=== PATIENT | male | born 1965 ===

== ENCOUNTER 2020-06-03 09:09 | Outpatient (REF) | payer MEDICARE, MEDICAID, SELFPAY | END 2020-06-03 09:10 | disposition home or self-care (01) | LOC: HO.LAB 09:09 | PROVIDERS: Visit Provider Internal Medicine | DX: Z20.828 Contact with and (suspected) exposure to other viral communicable diseases (principal) | CPT/HCPCS: C9803; U0003 ==

== ENCOUNTER 2020-06-25 08:49 | Outpatient (REF) | payer MEDICARE, MEDICAID, SELFPAY | END 2020-06-25 08:50 | disposition home or self-care (01) | LOC: HO.LAB 08:49 | PROVIDERS: Visit Provider Internal Medicine | DX: Z20.828 Contact with and (suspected) exposure to other viral communicable diseases (principal) | CPT/HCPCS: C9803; U0003 ==

== ENCOUNTER 2020-11-04 08:00 | Outpatient (REF) | payer MEDICARE, MEDICAID, SELFPAY | END 2020-11-04 08:01 | disposition home or self-care (01) | LOC: HO.LAB 08:00 | PROVIDERS: Visit Provider Internal Medicine | DX: Z20.822 Contact with and (suspected) exposure to COVID-19 (principal) | CPT/HCPCS: C9803; U0003; U0005 ==

== ENCOUNTER 2021-11-03 10:07 | Outpatient (REF) | payer MEDICARE, MEDICAID, SELFPAY ==
[2021-11-03 10:50] LABS: COVID-19 Test Positive (Negative); IDNOW Serial# 16C4AD1C
== END 2021-11-03 10:08 | disposition home or self-care (01) ==
LOC: HO.LAB 10:07
PROVIDERS: Visit Provider Internal Medicine
DX: Z20.822 Contact with and (suspected) exposure to COVID-19 (principal)
CPT/HCPCS: 87635; C9803

== ENCOUNTER 2021-11-11 13:04 | Outpatient (REF) | payer MEDICARE, MEDICAID, SELFPAY ==
[2021-11-11 14:14] LABS: COVID-19 Test Negative (Negative)
== END 2021-11-11 13:05 | disposition home or self-care (01) ==
LOC: HO.LAB 13:04
PROVIDERS: Visit Provider Internal Medicine
DX: Z20.822 Contact with and (suspected) exposure to COVID-19 (principal)
CPT/HCPCS: 87635; C9803

== ENCOUNTER 2022-08-18 12:59 | Outpatient (REF) | payer OTHER, SELFPAY ==
--- NOTE | ~2022-08-18 | XR_ITS ---
EXAMINATION: XR CHEST XR RIBS, LEFT CLINICAL INFORMATION: Chest pain COMPARISON: 01/08/2017 TECHNIQUE: PA and lateral views of the chest. 3 views of the left ribs. FINDINGS: The lungs are well expanded. There is no focal consolidation, edema, or effusion. No pneumothorax. The cardiomediastinal silhouette is within normal limits. No acute osseous abnormality. Targeted left rib radiographs show no fracture. No cortical disruption. Appropriate alignment. XR/XR chest 2V IMPRESSION: Clear lungs. No focal left rib abnormality identified.
--- NOTE | ~2022-08-18 | XR_ITS ---
EXAMINATION: XR CHEST XR RIBS, LEFT CLINICAL INFORMATION: Chest pain COMPARISON: 01/08/2017 TECHNIQUE: PA and lateral views of the chest. 3 views of the left ribs. FINDINGS: The lungs are well expanded. There is no focal consolidation, edema, or effusion. No pneumothorax. The cardiomediastinal silhouette is within normal limits. No acute osseous abnormality. Targeted left rib radiographs show no fracture. No cortical disruption. Appropriate alignment. XR/XR ribs LT 2V IMPRESSION: Clear lungs. No focal left rib abnormality identified.
[2022-08-18 14:14] LABS: Basophils Percent Auto 0.3 % (0-2); Eosinophils Absolute Auto 0.2 X10*3/uL (0.0-0.4); Eosinophils Percent Auto 2.5 % (0-4); Imm Gran Abs Auto 0.03 X10*3/uL (0.00-0.03); Imm Gran Pct Auto 0.5 % (0.0-0.4); Lymphocytes Absolute Auto 1.1 X10*3/uL (1.2-4.9); Lymphocytes Percent Auto 17.3 % (20-40); MANUAL DIFF FLAG NO; Mean Corpuscular HGB Conc 33.3 g/dl (31.0-36.0); Mean Corpuscular Hemoglobin 31.2 pg (27.0-33.0); Mean Corpuscular Volume 93.6 fL (80.0-98.0); Mean Platelet Volume 10.1 fL (9.4-12.4); Monocytes Absolute Auto 0.5 X10*3/uL (0.1-1.2); Neutrophils Absolute Auto 4.5 x10*3/uL (2.0-8.3); Neutrophils Percent Auto 71.4 % (45-73); Platelet Count 262 X10*3/uL (160-400); Red Blood Count 4.81 X10*6/uL (4.60-5.80); Red Cell Distribution Width 12.3 % (11.0-16.0); White Blood Count 6.4 X10*3/uL (4.8-10.8)
[2022-08-18 15:28] LABS: Alanine Aminotransferase 16 U/L (0-40); Albumin Level 4.3 g/dL (3.5-5.0); Alkaline Phosphatase 58 U/L (39-117); Anion Gap 13 (12-20); Aspartate Amino Transferase 17 U/L (5-37); Bilirubin Total 0.5 mg/dL (0.0-1.0); Blood Urea Nitrogen 10 mg/dL (9-16); Calcium 9.4 mg/dL (8.4-10.2); Carbon Dioxide 28 mmol/L (22-29); Chloride 106 mmol/L (96-108); Cholesterol 163 mg/dL; Estimated Glomerular Filt Rate > 60; Glucose Fasting 90 mg/dL (60-99); HDL Cholesterol 52 mg/dL; LDL Cholesterol Calculated 96 mg/dl; Potassium 4.5 mmol/L (3.3-5.1); Sodium 142 mmol/L (135-145); Total Protein 6.8 g/dL (6.5-8.0); Triglycerides 78 mg/dL
[2022-08-18 15:33] LABS: Prostate Specific Antigen 1.03 ng/mL (<0.05-4.0); TSH reflex Free T4 0.95 uIU/mL (0.32-4.0)
[2022-08-19 08:31] LABS: HBsAGNum1 0.33 S/CO (0.00-0.99); HIV AB/AG Nonreactive (Nonreactive); HIV Num 1 0.06 S/CO (0.00-0.99); Hepatitis A Antibody IgM 0.24 Index (0-0.79); Hepatitis B Core Antibody Nonreactive (Nonreactive); Hepatitis B Surface Antigen Negative (Negative); ~HepC Num1 0.09 S/CO (0.00-0.79); ~Hepatitis A Antibody IgM Nonreactive (Nonreactive); ~Hepatitis B Surface Antibody NONREACTIVE (Nonreactive); ~Hepatitis C Antibody Nonreactive (Nonreactive)
== END 2022-08-18 13:00 | disposition home or self-care (01) ==
LOC: HO.HMGCX 12:59
PROVIDERS: PCP Internal Medicine; Visit Provider Internal Medicine
DX: Z00.01 Encounter for general adult medical examination with abnormal findings (principal); Z12.5 Encounter for screening for malignant neoplasm of prostate; R07.9 Chest pain, unspecified; K21.9 Gastro-esophageal reflux disease without esophagitis; R35.1 Nocturia; F33.9 Major depressive disorder, recurrent, unspecified; F41.1 Generalized anxiety disorder; G47.9 Sleep disorder, unspecified; F11.11 Opioid abuse, in remission
CPT/HCPCS: 36415; 71046; 71100; 80053; 80061; 84153; 84443; 85025; 86704; 86706; 86709; 86803; 87340; 87389

== ENCOUNTER 2022-08-25 08:16 | Outpatient (REF) | payer OTHER, SELFPAY ==
--- NOTE | ~2022-08-25 | US_ITS ---
EXAMINATION: US ABDOMEN COMPLETE CLINICAL INFORMATION: Epigastric pain. COMPARISON: Ultrasound abdomen 02/17/2012. TECHNIQUE: Real-time imaging of the abdominal viscera. FINDINGS: PANCREAS: Normal. ABDOMINAL AORTA: The proximal, mid, and distal segments are normal in caliber. INFERIOR VENA CAVA: Visualized portions are normal. LIVER: The liver is normal in size. The liver contour is normal. There is diffuse increased liver parenchymal echogenicity. No focal hepatic lesion. There is no intrahepatic biliary duct dilatation seen. GALLBLADDER: A 2 mm nonmobile polyp is seen. There is minimal echogenic bile. The gallbladder is physiologically distended without evidence of stones, wall thickening or pericholecystic fluid. COMMON BILE DUCT: Normal in caliber measuring 0.3 cm in diameter. RIGHT KIDNEY: Normal. No hydronephrosis. No renal calculi or focal parenchymal lesions. The kidney measures 10.0 cm in maximum dimension. LEFT KIDNEY: Normal. No hydronephrosis. No renal calculi or focal parenchymal lesions. The kidney measures 10.0 cm in maximum dimension. SPLEEN: Normal. The spleen measures 7.8 cm in maximum dimension. FREE FLUID: None. US/US abdomen complete IMPRESSION: 1. There is generalized increase in hepatic echotexture, consistent with fatty infiltration or hepatocellular disease. Please correlate clinically. No focal hepatic mass or intrahepatic biliary dilatation is seen. 2. A 2 mm nonmobile gallbladder polyp is incidentally noted.
== END 2022-08-25 08:17 | disposition home or self-care (01) ==
LOC: HO.HMGCX 08:16
PROVIDERS: PCP Internal Medicine; Visit Provider Internal Medicine
DX: R10.13 Epigastric pain (principal); R10.11 Right upper quadrant pain
CPT/HCPCS: 76700

== ENCOUNTER 2022-09-23 05:46 | Outpatient (REF) | payer OTHER, SELFPAY | END 2022-09-23 05:47 | disposition home or self-care (01) | LOC: HO.HOSX 05:46 | PROVIDERS: Visit Provider Physician Assistant | DX: Z01.818 Encounter for other preprocedural examination (principal); K21.9 Gastro-esophageal reflux disease without esophagitis; K76.0 Fatty (change of) liver, not elsewhere classified; K82.4 Cholesterolosis of gallbladder; R10.13 Epigastric pain; F41.1 Generalized anxiety disorder; A04.8 Other specified bacterial intestinal infections; Z79.899 Other long term (current) drug therapy | CPT/HCPCS: 99202 ==

== ENCOUNTER 2022-09-24 08:58 | Outpatient (REF) | payer OTHER, SELFPAY | END 2022-09-24 08:59 | disposition home or self-care (01) | LOC: HO.LNP 08:58 | PROVIDERS: Visit Provider Physician Assistant | DX: A04.8 Other specified bacterial intestinal infections (principal) | CPT/HCPCS: 87338 ==

== ENCOUNTER → 2022-10-22 07:26 | Outpatient (BNVA) | payer OTHER, SELFPAY | PROVIDERS: PCP Internal Medicine; Referring Provider Internal Medicine; Visit Provider Physician Assistant ==

== ENCOUNTER 2022-12-23 08:48 | Outpatient (REF) | payer OTHER, SELFPAY ==
--- NOTE | ~2022-12-23 | US_ITS ---
EXAMINATION: US COMPLETE ABDOMEN WITH LIVER ELASTOGRAPHY CLINICAL INFORMATION: Fatty liver COMPARISON: Previous abdominal ultrasound most recent July 2022 TECHNIQUE: Real-time imaging of the abdominal viscera. Noninvasive ultrasound liver fibrosis assessment is performed using James ElastPQ point quantification shear wave elastography (2D-SWE) with a C5-2 MHz transducer. Multiple elastography samples are obtained. FINDINGS: PANCREAS: The visualized pancreatic head and body are normal in appearance. The remainder of the pancreas is obscured from visualization by the overlying bowel gas. ABDOMINAL AORTA: The proximal, middle, and distal aortic segments are normal in caliber. INFERIOR VENA CAVA: Visualized portions are normal. LIVER: Liver echotexture is slightly increased. Liver is normal in size and contour. No focal lesion or intrahepatic biliary duct dilatation. The right lobe measures 12.6 cm in length. The left lobe measures 9 cm in length. Portal flow is normal/hepatopedal Shear wave liver elastography median stiffness is 1.4 m/s (reference: normal median stiffness is 1.3 m/s or less). IQR/median stiffness to assess sampling precision is 0.08 (reference: good quality data set is IQR/median stiffness of 0.15 or less). GALLBLADDER: Normal. The gallbladder is physiologically distended without evidence of stones, sludge, polyps, wall thickening or pericholecystic fluid. COMMON BILE DUCT: Normal in caliber measuring 0.3 cm in diameter. RIGHT KIDNEY: 1.5 cm cyst in the lower pole. No hydronephrosis. No renal calculi . The kidney measures 10.6 cm in maximum dimension. LEFT KIDNEY: Normal. No hydronephrosis. No renal calculi or focal parenchymal lesions. The kidney measures 10.4 cm in maximum dimension. SPLEEN: Normal. The spleen measures 7.6 cm in maximum dimension. FREE FLUID: None. US/US abdomen comp w elastography IMPRESSION: 1. Impression: Slightly echogenic liver probably representing fatty infiltration. Small right renal cyst. No imaging follow-up recommended. Limited visualization of the tail of the pancreas. 2. Liver elastography: Slightly limited due to sampling error. Normal liver stiffness. REFERENCE: Society of Radiologists in Ultrasound Liver Stiffness Thresholds (2020): LIVER STIFFNESS THRESHOLDS: *Liver Stiffness equal or less than 1.3 m/s: High probability of being normal. *Liver Stiffness less than 1.7 m/s: In the absence of other known clinical signs, rules out compensated advanced chronic liver disease. *Liver Stiffness 1.7-2.1 m/s: Suggestive of compensated advanced chronic liver disease but need further test for confirmation. *Liver Stiffness over 2.1 m/s: Rules in compensated advanced chronic liver disease. *Liver Stiffness over 2.4 m/s: Suggestive of clinically significant portal hypertension. QUALITY OF DATA SET: *IQR/Median value equal or less than 0.15 implies a quality data set. *IQR/Median value over 0.15 implies a poor quality data set. SIGNIFICANT CHANGE FROM PRIOR EXAM: Significant change if liver stiffness measurement is 10% or greater from prior exam. OTHER CONSIDERATIONS: The stage of liver fibrosis may be overestimated in the setting of acute hepatitis, liver inflammation, elevated liver function tests, hepatic vascular congestion, obstructive cholestasis, non-fasting state, and infiltrative diseases such as amyloidosis and lymphoma. In some patients with NAFLD, the liver stiffness thresholds for compensated advanced chronic liver disease may be lower. In causes other than viral hepatitis and NAFLD, liver stiffness thresholds are not well established.
== END 2022-12-23 08:49 | disposition home or self-care (01) ==
LOC: HO.US 08:48
PROVIDERS: Visit Provider Physician Assistant
DX: K76.0 Fatty (change of) liver, not elsewhere classified (principal); K82.4 Cholesterolosis of gallbladder
CPT/HCPCS: 76705; 76981

== ENCOUNTER 2023-07-12 09:53 | Outpatient (AMB) | payer OTHER, SELFPAY ==
--- NOTE | 2023-07-12 10:03 | A.OFFVIS_ITS ---
Intake Vital Signs 07/12/23 10:05 Height 5 ft 4 in Weight 151 lb BMI 25.9 BP 110/62 Blood Pressure Location Lt brachial Position Sitting Pulse 76 Intake Visit Reasons: Follow Up US - No show in November Intake Note: Patient follow up for abdominal pain, stool and US results. Patient cc: abdominal pain, acid reflex with burning sensation, denies any other GI issues. Livestock [employer] Super[employer] Required: No Accompanied by: Self / Same As Patient Allergies TUNA FISH Allergy (Unknown, Uncoded 03/19/22 12:08) UNKNOWN Medication List - Last Reconciled 07/12/23 by Kandace Willis PA-C albuterol sulfate 90 mcg/actuation (Ventolin HFA) 1 inh inhalation QID PRN 30 days citalopram 40 mg PO QAM famotidine 20 mg PO DAILY hydroxyzine HCl 50 mg PO BID PRN zolpidem 10 mg PO BEDTIME PRN HPI HPI Comments History of Present Illness Details A 57 y/o male seen last 10/15- f/u after U/S from 11/2022 H has mild reflux- occ. he does go to bed with a full stomach- he eats a full meal before bed He has normal bowel pattern. He no other GI or general complaints No nausea, vomiting, hematemesis, hematochezia fever or chills PFSH Surgical History Hx of colonoscopy Social History Housing: House Patient Tobacco Use Status: Never used Tobacco e-Cigarette/Vaping Use: Never Used Current occupational status: retired Cognitive needs: No Hearing needs: No Vision needs: No Review of Systems Const All systems reviewed & are unremarkable except as noted in HPI and below Card Denies chest pain and Denies dyspnea Resp Denies dyspnea GI Reports abdominal pain, Reports change in bowel habits, Reports heartburn, Denies diarrhea, Denies nausea and Denies vomiting Physical Exam Vital Signs: Last Vital Signs Pulse 76 07/12/23 10:05 BP 110/62 07/12/23 10:05 BMI result Body Mass Index 25.9 Const General: cooperative, healthy appearing, comfortable and no acute distress Orientation/consciousness: patient oriented x3 Limitations: no limitations Eyes Sclerae: sclerae normal Resp Effort & Inspection: normal respiratory effort and able to speak in complete sentences Skin General skin exam: no rashes or lesions noted Neuro General: patient oriented x3 Extrem General: Yes full ROM Psych Appearance: grossly normal and well kempt Mental Status: mental status grossly normal Speech and movement: Normal speech and movement present and Clear speech present Affect: normal affect Attitude: cooperative Thought process: Normal thought process present Thought content: Normal thought content present Insight: Good insight present (Psych) Judgement: Good judgement present (Psych) Results Reviewed Results Reviewed: US/US abdomen comp w elastography IMPRESSION: 1. Impression: Slightly echogenic liver probably representing fatty infiltration. Small right renal cyst. No imaging follow-up recommended. Limited visualization of the tail of the pancreas. 2. Liver elastography: Slightly limited due to sampling error. Normal liver stiffness HP neg- Assessment & Plan Assessment & Plan (1) NAFLD (nonalcoholic fatty liver disease): Comment: Reviewed ultrasound, reviewed blood work lifestyle dietary change, he does not drink Code(s): K76.0 - Fatty (change of) liver, not elsewhere classified Plan: L/S change He has updating labs next month with his PCP (2) GERD without esophagitis: Comment: reflux- trial pantoprazole neg H pylori test Code(s): K21.9 - Gastro-esophageal reflux disease without esophagitis Plan: pantoprazole 20 mg Reviewed precautions Plan Follow-up PCP as schedule Labs as schedule PPI Medications: New pantoprazole 40 mg (2 x 20 mg) PO ONCE 60 tabs 6RF 30 days Patient Instructions: He will have labs per PCP as scheduled He will give trial to pantoprazole 20 mg Reviewed precautions-avoid culprits lifestyle and dietary change to include not eating late in the evening. Maintain good weight, glucose and cholesterol control Coding Level of Care Code Est Pt Level 3 (47560) Diagnoses NAFLD (nonalcoholic fatty liver disease) K76.0 GERD without esophagitis K21.9 Time Spent (min) 30
[2023-07-12 10:05] VITALS: BP 110/62; PULSE 76; BMI 25.9
== END 2023-07-12 11:37 | disposition home or self-care (01) ==
PROVIDERS: PCP Internal Medicine; Visit Provider Physician Assistant
DX: K76.0 Fatty (change of) liver, not elsewhere classified (principal); K21.9 Gastro-esophageal reflux disease without esophagitis
CPT/HCPCS: 99213

== ENCOUNTER → 2023-07-12 09:53 | Outpatient (BNVA) | payer OTHER, SELFPAY | PROVIDERS: PCP Internal Medicine; Visit Provider Physician Assistant | DX: K76.0 Fatty (change of) liver, not elsewhere classified (principal); K21.9 Gastro-esophageal reflux disease without esophagitis | CPT/HCPCS: 99212 ==

== ENCOUNTER 2023-09-14 11:44 | Outpatient (AMB) | payer OTHER, SELFPAY ==
[2023-09-14 11:47] VITALS: BP 128/72; PULSE 86; O2SAT 97; BMI 28.0
--- NOTE | 2023-09-14 11:47 | A.OFFPC_ITS ---
Vital Signs 3 09/14/23 11:47 Height 5 ft 4 in Weight 163 lb 2 oz BMI 28.0 BP 128/72 Blood Pressure Location Lt brachial Position Sitting Pulse 86 Pulse Source Pulse Oximeter Pulse Oximetry (%) 97 Oxygen Delivery Method Room Air Intake Visit Reasons: PE Allergies TUNA FISH Allergy (Unknown, Uncoded 03/19/22 12:08) UNKNOWN Medication List - Last Reconciled 09/14/23 by Isidoro Palmer MD albuterol sulfate 90 mcg/actuation (Ventolin HFA) 1 inh inhalation QID PRN 30 days citalopram 40 mg PO QAM famotidine 20 mg PO DAILY hydroxyzine HCl 50 mg PO BID PRN zolpidem 10 mg PO BEDTIME PRN Tobacco use date assessed: 09/14/23 Dental Screening Dental Screen Date: 09/14/23 Did you have a dental visit in the last 12 months?: Yes Did you have a dental problem in the last 6 months where you did not have access to dental care?: No Was dental information given to patient?: Patient has dentist HPI PE 2 HPI0 Details Patient is a 57-year-old gentleman came in for physical exam Patient is already established with gastroenterology, colonoscopy through [facility] Patient have intermittent asthma, he is requesting refill on albuterol which I have sent Patient also sees psychiatrist for management of major depression, difficulty sleeping and anxiety On examination today I sensed irregularity in his heart We got the EKG which showed premature ventricular complexes February of 2022, his EKG was within normal limit Have placed referral to Cardiology Holter monitor and echocardiogram ordered Patient is overweight need to lose weight PFSH Surgical History Hx of colonoscopy Social History Housing: House Patient Tobacco Use Status: Never used Tobacco e-Cigarette/Vaping Use: Never Used Current occupational status: retired Cognitive needs: No Hearing needs: No Vision needs: No Questionnaire AUDIT C Alcohol Use Questionnaire (AUDIT-C) 1. How often do you have a drink containing alcohol?: Never 3. How often do you have six or more drinks on one occasion?: Never Total Score: 0 Score Reviewed/Action Taken: Yes Review of Systems Const Denies chills, Denies fever(s) and Denies headache(s) Eyes Denies blurry vision ENT Denies headache(s), Denies nasal discharge, Denies nasal obstruction, Denies odynophagia and Denies sinus pain Card Denies chest pain at rest and Denies chest pain with activity Resp Denies cough and Denies hemoptysis GI Denies diarrhea, Denies odynophagia, Denies vomiting and Denies hematemesis Reports as per HPI Musc Denies abnormal gait Skin/Breast Reports as per HPI Neuro Denies Neuro-related abnormal movements, Denies Abnormal speech present, Denies abnormal gait, Denies headache(s) and Denies Sensory deficit (Neuro) Psych Denies mood swings and Denies paranoia Endo Reports as per HPI Chi/Lymph Reports as per HPI Aller/Immun Reports as per HPI Physical exam (Primary Care) Vital Signs: Last Vital Signs Pulse 86 09/14/23 11:47 BP 128/72 09/14/23 11:47 Pulse Ox 97 09/14/23 11:47 Oxygen Delivery Method Room Air 09/14/23 11:47 BMI result Body Mass Index 28.0 Tobacco/Smoking Status: Tobacco use Status Tobacco use date assessed 09/14/23 09/14/23 11:52 Patient Tobacco Use Status Never used Tobacco 09/14/23 11:52 e-Cigarette/Vaping Use Never Used 09/14/23 11:52 Const General: cooperative, comfortable and no acute distress Orientation/consciousness: patient oriented x3 HENMT Head: Yes normocephalic and Yes atraumatic Eyes General: appearance normal, both eyes and all related structures Pupils: Equal, round and reactive pupils present EOM: EOMs intact bilaterally Neck Neck: Yes supple and No lymphadenopathy Thyroid: Thyroid normal Lymphatic: no lymphadenopathy noted Resp Effort & Inspection: normal respiratory effort and able to speak in complete sentences Auscultation: clear to auscultation bilaterally Cardio Other: Heart sounds: S1 normal heart sound present and S2 normal heart sound present GI Palpation (GI): Soft to palpation and nontender Auscultation: normal bowel sounds General: Yes no CVA tenderness Back/Spine/Pelvis Back: no CVA tenderness Skin General skin exam: elasticity normal and turgor normal Neuro General: patient oriented x3 and gait normal Cranial nerves: Yes Equal, round and reactive pupils present Speech: No Abnormal speech present Sensory Exam: No Sensory deficit (Neuro) Coordination: tandem gait normal and Romberg test negative Extrem General: Yes normal exam except as noted and No edema Office Procedures EKG [id number], Complete Assessment and Plan Assessment & Plan (1) Encounter for general adult medical examination with abnormal findings: Code(s): Z00.01 - Encounter for general adult medical examination with abnormal findings (2) Irregular heart rhythm: Code(s): I49.9 - Cardiac arrhythmia, unspecified (3) GERD without esophagitis: Comment: reflux- trial pantoprazole neg H pylori test Code(s): K21.9 - Gastro-esophageal reflux disease without esophagitis (4) Major depression, recurrent: Code(s): F33.9 - Major depressive disorder, recurrent, unspecified Qualifiers: Active/Remission status: in partial remission Qualified Code(s): F33.41 - Major depressive disorder, recurrent, in partial remission (5) Anxiety, generalized: Comment: , very polite Gent Code(s): F41.1 - Generalized anxiety disorder (6) Difficulty sleeping: Code(s): G47.9 - Sleep disorder, unspecified (7) Asthma, intermittent: Code(s): J45.20 - Mild intermittent asthma, uncomplicated Qualifiers: Asthma complication type: uncomplicated Asthma severity: mild Qualified Code(s): J45.20 - Mild intermittent asthma, uncomplicated (8) Environmental allergies: Code(s): Z91.09 - Other allergy status, other than to drugs and biological substances (9) Premature ventricular complex: Code(s): I49.3 - Ventricular premature depolarization Plan Patient is a 57-year-old gentleman came in for physical exam Patient is already established with gastroenterology, colonoscopy through [facility] Patient have intermittent asthma, he is requesting refill on albuterol which I have sent Patient also sees psychiatrist for management of major depression, difficulty sleeping and anxiety On examination today I sensed irregularity in his heart We got the EKG which showed premature ventricular complexes February of 2022, his EKG was within normal limit Have placed referral to Cardiology Holter monitor and echocardiogram ordered Patient do not have any shortness a breath or chest pain there is no swelling of ankles or orthopnea Patient is overweight need to lose weight Orders: Orders 2 Comprehensive Met. Panel Today F33.9 - Major depressive disorder, recurrent, unspecified, F41.1 - Generalized anxiety disorder, G47.9 - Sleep disorder, unspecified, I49.9 - Cardiac arrhythmia, unspecified, J45.20 - Mild intermittent asthma, uncomplicated, Z00.01 - Encounter for general adult medical examination with abnormal findings, Z91.09 - Other allergy status, other than to drugs and biological substances LDL Cholesterol Direct Today F33.9 - Major depressive disorder, recurrent, unspecified, F41.1 - Generalized anxiety disorder, G47.9 - Sleep disorder, unspecified, I49.9 - Cardiac arrhythmia, unspecified, J45.20 - Mild intermittent asthma, uncomplicated, Z00.01 - Encounter for general adult medical examination with abnormal findings, Z91.09 - Other allergy status, other than to drugs and biological substances TSH reflex Free T4 Today F33.9 - Major depressive disorder, recurrent, unspecified, F41.1 - Generalized anxiety disorder, G47.9 - Sleep disorder, unspecified, I49.9 - Cardiac arrhythmia, unspecified, J45.20 - Mild intermittent asthma, uncomplicated, Z00.01 - Encounter for general adult medical examination with abnormal findings, Z91.09 - Other allergy status, other than to drugs and biological substances ECG holter monitor 24 hour Today I49.9 - Cardiac arrhythmia, unspecified CA echo transthoracic complete Today I49.9 - Cardiac arrhythmia, unspecified AMB EKG-In Office Today I49.9 - Cardiac arrhythmia, unspecified Complete Blood Count Auto Diff Today F33.9 - Major depressive disorder, recurrent, unspecified, F41.1 - Generalized anxiety disorder, G47.9 - Sleep disorder, unspecified, I49.9 - Cardiac arrhythmia, unspecified, J45.20 - Mild intermittent asthma, uncomplicated, Z00.01 - Encounter for general adult medical examination with abnormal findings, Z91.09 - Other allergy status, other than to drugs and biological substances Referrals 2 Cardiology Referral I49.3 - Ventricular premature depolarization, I49.9 - Cardiac arrhythmia, unspecified Medications: Refilled 2 albuterol sulfate 90 mcg/actuation (Ventolin HFA) 1 inh inhalation QID PRN 6.7 grams 2RF shortness of breath or wheezing 30 days Coding Level of Care Code Est Pt Prev Care 40-64y(94110) Diagnoses Encounter for general adult medical examination with abnormal findings Z00.01 Irregular heart rhythm I49.9 GERD without esophagitis K21.9 Recurrent major depressive disorder, in partial remission F33.41 Active/Remission status: in partial remission Anxiety, generalized F41.1 Difficulty sleeping G47.9 Mild intermittent asthma without complication J45.20 Asthma complication type: uncomplicated Asthma severity: mild Environmental allergies Z91.09 Premature ventricular complex I49.3 CPT Codes EKG - CPT: 53562-[id number], Complete ([id number])
== END 2023-09-14 12:25 | disposition home or self-care (01) ==
PROVIDERS: Visit Provider Internal Medicine
DX: Z00.01 Encounter for general adult medical examination with abnormal findings (principal); I49.9 Cardiac arrhythmia, unspecified; F33.41 Major depressive disorder, recurrent, in partial remission; K21.9 Gastro-esophageal reflux disease without esophagitis; I49.3 Ventricular premature depolarization; F41.1 Generalized anxiety disorder; G47.9 Sleep disorder, unspecified; J45.20 Mild intermittent asthma, uncomplicated; Z91.09 Other allergy status, other than to drugs and biological substances
CPT/HCPCS: 93000; 99214; 99396

== ENCOUNTER 2023-09-22 08:04 | Emergency (ER) | payer OTHER, SELFPAY ==
--- NOTE | ~2023-09-22 | XR_ITS ---
EXAMINATION: XR CHEST CLINICAL INFORMATION: Chest pain COMPARISON: None available. TECHNIQUE: Frontal view of the chest was obtained. FINDINGS: No significant abnormality is noted involving the heart, lungs, mediastinum, bony thorax or soft tissues. XR/XR chest 1V IMPRESSION: Unremarkable chest examination.
--- NOTE | 2023-09-22 08:05 | ECG_ITS ---
Test Reason : cp Blood Pressure : / mmHG Vent. Rate : 069 BPM Atrial Rate : 069 BPM P-R Int : 144 ms QRS Dur : 090 ms QT Int : 390 ms P-R-T Axes : 060 027 032 degrees QTc Int : 417 ms Normal sinus rhythm with sinus arrhythmia Normal ECG When compared with ECG of 08-JAN-2017 22:26, Vent. rate has decreased BY 36 BPM Referred By: Generic ED Physician Electronically Signed By:CLEO MENDOZA
[2023-09-22 08:30] VITALS: BP 148/74; PULSE 65; RESP 18; TEMP 37.1; O2SAT 98; BMI 26.4
--- NOTE | 2023-09-22 08:34 | ED_ITS ---
HPI - Chest Pain General Chief Complaint: General Medical Stated Complaint: Chest Pain L Arm Numbness Time Seen by Provider: 09/22/23 08:14 Source: patient Mode of arrival: ambulatory Limitations: no limitations History of Present Illness HPI narrative: 57 yo male with PMH of GERD, anxiety was told at his PCP he had irregular heart beat and has to see a associate store director - he doesn't know what that means and is very nervous about it. He is active and walks and has no chest pain or symptoms. Last night he was in bed and had a knot and pain in L chest into L arm. He just lifted a large ladder with his neighbor. It hurts to move the arm and touch the left chest. He has no dyspnea, nausea or sweats. He has no fam hx of CAD. He only had PVCs on the EKG but was not aware of that. He has no recent travel or hx of VTE. MD complaint: chest pain Onset (ago): day(s) (last night) Timing of current episode: constant Prior episodes: No Onset: during rest Pain radiation: left arm Severity: moderate Quality: aching Relieving factors: nothing Exacerbating factors: palpation and movement Context: trauma/injury Treatment prior to arrival: none Related Data Home Medications Medication Instructions Recorded Confirmed citalopram 40 mg tablet 40 mg PO QAM 03/19/22 09/14/23 hydroxyzine HCl 50 mg tablet 50 mg PO BID PRN anxiety 03/19/22 09/14/23 zolpidem 10 mg tablet 10 mg PO BEDTIME PRN 03/19/22 09/14/23 Previous Rx's Medication Instructions Recorded famotidine 20 mg tablet 20 mg PO DAILY #90 tabs 04/26/23 albuterol sulfate 90 mcg/actuation 1 inh inhalation QID PRN shortness 09/14/23 aerosol inhaler (Ventolin HFA) of breath or wheezing 30 days #6.7 grams cyclobenzaprine 10 mg tablet 10 mg PO TID PRN muscle spasm #20 09/22/23 tabs Allergies Allergy/AdvReac Type Severity Reaction Status Date / Time TUNA FISH Allergy Unknown UNKNOWN Uncoded 09/22/23 08:34 Review of Systems 2 Review of Systems: Constitutional : No Weight loss, No Fever, No Chills ENT/Mouth : No sore throat, No Rhinorrhea Eyes: No Eye Pain, No Swelling Cardiovascular : pos Chest Pain, no SOB, no Dyspnea on Exertion, No Orthopnea, No Edema, No Palpitations Respiratory : No Cough, No Sputum Gastrointestinal : no Nausea, No Vomiting, No Diarrhea, No abdominal Pain, No Hematochezia, No Melena Genitourinary : No Dysuria, No Urinary Frequency Musculoskeletal : No joint pain, No Myalgias, No Joint Swelling Skin : No Skin Lesions, No rash Neuro : No Weakness, No Numbness, No Dizziness, No Headache Psych : No Anxiety/Panic, No Depression All other systems reviewed and are negative [facility] Past Medical History Attestation statement: The following information was validated with the patient. Source: old records reviewed Medical History Premature ventricular complex Anxiety, generalized Major depression, recurrent GERD without esophagitis Surgical History Hx of colonoscopy Social History Social History Housing: House Patient Tobacco Use Status: Never used Tobacco Smoked in Last 30 Days: No e-Cigarette/Vaping Use: Never Used Use of substances other than those prescribed or required for medical reasons: No Advance Directives: No Advance Directives Information Provided: Yes Current occupational status: retired Cognitive needs: No Hearing needs: No Vision needs: No Physical Exam 2 Vital Signs: Vital Signs: Last Vital Signs Temp 98 F 09/22/23 09:08 Pulse 63 09/22/23 09:08 Resp 16 09/22/23 09:08 BP 144/75 H 09/22/23 09:08 Pulse Ox 97 09/22/23 09:08 O2 Del Method Room Air 09/22/23 09:08 BMI result Body Mass Index 26.4 Appearance: Alert. Oriented X3. No acute distress. Eyes: Pupils equal, round and reactive to light. ENT: Pharynx normal. TMs normal Neck: Normal inspection. Neck supple. Mild L trapezius ttp CVS: Normal heart rate and rhythm. Pulses normal. Chest: ttp along L chest wall reproduces pain, ttp along L shoulder reproduces pain - distal L arm NV intact Respiratory: No respiratory distress. Breath sounds normal. Abdomen: Soft and nontender. Skin: Skin warm and dry. Normal skin color. Normal skin turgor. Extremities: No lower extremity edema. No calf ttp Neuro: Oriented X 3. No motor deficit. No sensory deficit. Medical Decision Making Medical Decision Making [facility] Narrative: 57 yo male with PMH of GERD, anxiety here with c/o L chest pain that is reproduceable likely after lifting a ladder. He has no ACS risk factors did have stress after being told he had irregular heart beat but it was PVCs on EKG. He has no exertional symptoms when he is walking. He has no associated symptoms now. He has no risk factors for VTE no tachycardia or hypoxia/signs of DVT. He has distal pulses intact doubt dissection. He walks without chest pain. This does not sound like ACS. I suspect more MSK pain as I can reproduce it Differential Diagnosis Differential Diagnoses: The differential diagnosis associated with the presentation includes stress, anxiety, MSK pain, strain Admission/Observation Consideration of admission/observation: Escalation of care including admission/observation considered atypical pain at this time stable for DC trop flat EKG negative CXR normal non exertional symptoms Lab Data [facility] Lab Attestation statement: I reviewed the patient's lab results. 09/22/23 08:46 09/22/23 08:46 Labs: Lab Results 09/22/23 Range/Units 08:46 WBC 5.2 (4.8-10.8) X10*3/uL RBC 4.45 L (4.60-5.80) X10*6/uL Hgb 14.1 (14.0-18.0) g/dl Hct 41.9 L (42.0-52.0) % MCV 94.2 (80.0-98.0) fL MCH 31.7 (27.0-33.0) pg MCHC 33.7 (31.0-36.0) g/dl RDW 12.7 (11.0-16.0) % Plt Count 224 (160-400) X10*3/uL MPV 9.8 (9.4-12.4) fL Immature Gran % (Auto) 0.2 (0.0-0.4) % Neut % (Auto) 62.9 (45-73) % Lymph % (Auto) 21.0 (20-40) % Gila % (Auto) 9.7 (2-11) % Eos % (Auto) 5.6 H (0-4) % Baso % (Auto) 0.6 (0-2) % Lymph # (Auto) 1.1 L (1.2-4.9) X10*3/uL Gila # (Auto) 0.5 (0.1-1.2) X10*3/uL Eos # (Auto) 0.3 (0.0-0.4) X10*3/uL Baso # (Auto) 0.0 (0.0-0.2) X10*3/uL Abs Immat Gran (auto) 0.01 (0.00-0.03) X10*3/uL Absolute Neuts (auto) 3.2 (2.0-8.3) x10*3/uL Absolute Nucleated RBC 0.000 (0.0-0.012) X10*3/uL Nucleated RBC % (auto) 0.0 (0.0-0.2) /100WBC Sodium 141 (135-145) mmol/L Potassium 4.6 (3.3-5.1) mmol/L Chloride 109 H (96-108) mmol/L Carbon Dioxide 29 (22-29) mmol/L Anion Gap 8 L (12-20) BUN 10 (9-16) mg/dL Creatinine 0.86 (0.5-1.4) mg/dL Estim Creat Clear Calc 77.4 Estimated GFR > 60 Random Glucose 93 (60-115) mg/dL Calcium 9.3 (8.4-10.2) mg/dL Magnesium 2.2 (1.6-2.6) mg/dL Total Bilirubin 0.5 (0.0-1.0) mg/dL Direct Bilirubin 0.2 (0.0-0.5) mg/dL AST 17 (5-37) U/L ALT 16 (0-40) U/L Alkaline Phosphatase 58 (39-117) U/L Troponin I High Sens < 2.7 (<3.5-35.0) ng/L Total Protein 6.6 (6.5-8.0) g/dL Albumin 4.0 (3.5-5.0) g/dL Lipase 35 (8-78) U/L Independent Interpretation I performed an independent interpretation of an: EKG and Plain X-Ray (normal ) Interpretation: Rate: 69 Rhythm: [facility]: normal Normal P waves. Normal YARIEL. Normal QRS complex. ST T wave : normal no AZALEA qTC: 417 prior studies: no acute ischemia The study has been interpreted contemporaneously by me. . Radiology Impression Discussion of test interpretation with radiology: I have reviewed the radiologist's reading. External Record Review External record reviewed: Inpatient record and Office record Prescription Management I considered prescription management with: Other Discharge Plan Discharge Clinical Impression: Chest pain Qualifiers: Chest pain type: precordial pain Qualified Code(s): R07.2 - Precordial pain Patient Disposition: Home, Self-Care Instructions: Chest Pain (ED), Chest Wall Pain (ED) Additional Instructions: return for worsening symptoms or concerns. please take it easy with your pectoralis muscle I suspect there is an injury and strain. no heavy lifting for 2 weeks. use motrin or tylenol along with muscle relaxers. continue to follow up with your primary care doctor your EKG at your primary care doctor showed PVC premature ventricular contraction Prescriptions: New cyclobenzaprine 10 mg tablet 10 mg PO TID PRN (Reason: muscle spasm) Qty: 20 0RF No Action famotidine 20 mg tablet 20 mg PO DAILY Qty: 90 2RF zolpidem 10 mg tablet 10 mg PO BEDTIME PRN hydroxyzine HCl 50 mg tablet 50 mg PO BID PRN (Reason: anxiety) citalopram 40 mg tablet 40 mg PO QAM albuterol sulfate [Ventolin HFA] 90 mcg/actuation HFA aerosol inhaler 1 inh inhalation QID PRN (Reason: shortness of breath or wheezing) 30 Days Qty: 6.7 2RF
[2023-09-22 08:57] LABS: MANUAL DIFF FLAG NO
[2023-09-22 08:59] LABS: Basophils Percent Auto 0.6 % (0-2); Eosinophils Absolute Auto 0.3 X10*3/uL (0.0-0.4); Eosinophils Percent Auto 5.6 % (0-4); Hematocrit 41.9 % (42.0-52.0); Hemoglobin 14.1 g/dl (14.0-18.0); Imm Gran Abs Auto 0.01 X10*3/uL (0.00-0.03); Imm Gran Pct Auto 0.2 % (0.0-0.4); Lymphocytes Absolute Auto 1.1 X10*3/uL (1.2-4.9); Mean Corpuscular HGB Conc 33.7 g/dl (31.0-36.0); Mean Corpuscular Hemoglobin 31.7 pg (27.0-33.0); Mean Corpuscular Volume 94.2 fL (80.0-98.0); Mean Platelet Volume 9.8 fL (9.4-12.4); Monocytes Absolute Auto 0.5 X10*3/uL (0.1-1.2); Monocytes Percent Auto 9.7 % (2-11); Neutrophils Absolute Auto 3.2 x10*3/uL (2.0-8.3); Neutrophils Percent Auto 62.9 % (45-73); Platelet Count 224 X10*3/uL (160-400); Red Blood Count 4.45 X10*6/uL (4.60-5.80); Red Cell Distribution Width 12.7 % (11.0-16.0); White Blood Count 5.2 X10*3/uL (4.8-10.8)
[2023-09-22 09:08] VITALS: BP 144/75; PULSE 63; RESP 16; TEMP 36.6; O2SAT 97
--- NOTE | 2023-09-22 09:10 | PC.NURSE ---
no distress, reports improved chest pain, no sob.
[2023-09-22 09:12] LABS: Alanine Aminotransferase 16 U/L (0-40); Alkaline Phosphatase 58 U/L (39-117); Anion Gap 8 (12-20); Aspartate Amino Transferase 17 U/L (5-37); Bilirubin Direct 0.2 mg/dL (0.0-0.5); Bilirubin Total 0.5 mg/dL (0.0-1.0); Blood Urea Nitrogen 10 mg/dL (9-16); Calcium 9.3 mg/dL (8.4-10.2); Carbon Dioxide 29 mmol/L (22-29); Chloride 109 mmol/L (96-108); Creatinine Clr Calc Pharmacy 77.4; Estimated Glomerular Filt Rate > 60; Glucose Random 93 mg/dL (60-115); Lipase 35 U/L (8-78); Magnesium 2.2 mg/dL (1.6-2.6); Potassium 4.6 mmol/L (3.3-5.1); Sodium 141 mmol/L (135-145); Total Protein 6.6 g/dL (6.5-8.0)
[2023-09-22 09:24] LABS: Troponin-I High Sensitivity < 2.7 ng/L (<3.5-35.0)
== END 2023-09-22 09:55 | disposition home or self-care (01) ==
PROVIDERS: Emergency Provider Emergency Medicine; PCP Internal Medicine
DX: R07.2 Precordial pain (principal); K21.9 Gastro-esophageal reflux disease without esophagitis
CPT/HCPCS: 36415; 71045; 80048; 80076; 83690; 83735; 84484; 85025; 93005; 99283; 99284

== ENCOUNTER → 2023-09-22 08:05 | Outpatient (BNV) | payer OTHER, SELFPAY | PROVIDERS: Emergency Provider Emergency Medicine; PCP Internal Medicine; Visit Provider Internal Medicine | DX: I49.9 Cardiac arrhythmia, unspecified (principal) | CPT/HCPCS: 93010 ==

== ENCOUNTER 2023-10-01 07:40 | Outpatient (REF) | payer OTHER, SELFPAY ==
[2023-10-01 11:22] LABS: MANUAL DIFF FLAG NO
[2023-10-01 11:29] LABS: Basophils Percent Auto 0.7 % (0-2); Eosinophils Absolute Auto 0.4 X10*3/uL (0.0-0.4); Eosinophils Percent Auto 6.6 % (0-4); Hematocrit 45.2 % (42.0-52.0); Imm Gran Abs Auto 0.01 X10*3/uL (0.00-0.03); Imm Gran Pct Auto 0.2 % (0.0-0.4); Lymphocytes Absolute Auto 1.1 X10*3/uL (1.2-4.9); Mean Corpuscular HGB Conc 33.2 g/dl (31.0-36.0); Mean Corpuscular Hemoglobin 31.2 pg (27.0-33.0); Mean Platelet Volume 10.4 fL (9.4-12.4); Monocytes Absolute Auto 0.4 X10*3/uL (0.1-1.2); Monocytes Percent Auto 8.1 % (2-11); Neutrophils Absolute Auto 3.5 x10*3/uL (2.0-8.3); Neutrophils Percent Auto 63.4 % (45-73); Platelet Count 246 X10*3/uL (160-400); Red Blood Count 4.81 X10*6/uL (4.60-5.80); Red Cell Distribution Width 12.4 % (11.0-16.0); White Blood Count 5.4 X10*3/uL (4.8-10.8)
[2023-10-01 11:52] LABS: Alanine Aminotransferase 17 U/L (0-40); Albumin Level 4.4 g/dL (3.5-5.0); Alkaline Phosphatase 64 U/L (39-117); Anion Gap 9 (12-20); Aspartate Amino Transferase 18 U/L (5-37); Bilirubin Total 0.5 mg/dL (0.0-1.0); Blood Urea Nitrogen 14 mg/dL (9-16); Calcium 9.4 mg/dL (8.4-10.2); Carbon Dioxide 29 mmol/L (22-29); Chloride 108 mmol/L (96-108); Estimated Glomerular Filt Rate > 60; Glucose Random 94 mg/dL (60-115); Potassium 4.7 mmol/L (3.3-5.1); Sodium 141 mmol/L (135-145); Total Protein 7.3 g/dL (6.5-8.0)
[2023-10-01 12:11] LABS: TSH reflex Free T4 0.92 uIU/mL (0.32-4.0)
[2023-10-02 11:08] LABS: LDL Cholesterol Direct 103 mg/dL (<100)
== END 2023-10-01 07:41 | disposition home or self-care (01) ==
LOC: HO.HMGCLDS 07:40
PROVIDERS: PCP Internal Medicine; Visit Provider Internal Medicine
DX: Z00.01 Encounter for general adult medical examination with abnormal findings (principal); F33.9 Major depressive disorder, recurrent, unspecified; F41.1 Generalized anxiety disorder; G47.9 Sleep disorder, unspecified; J45.20 Mild intermittent asthma, uncomplicated; Z91.09 Other allergy status, other than to drugs and biological substances; I49.9 Cardiac arrhythmia, unspecified
CPT/HCPCS: 36415; 80053; 83721; 84443; 85025

== ENCOUNTER → 2023-10-08 09:28 | Outpatient (REF) | payer OTHER, SELFPAY ==
--- NOTE | 2023-10-08 09:31 | HM_ITS ---
Conclusion: 1. Patient was monitored for total period of 1 day 2. Baseline was normal sinus rhythm with average heart rate of 78 beats per minute 3. Frequent PVCs noted, all of them isolated with total burden of about 15% 4. No significant pauses noted 5. No patient reported symptoms MTDD
--- NOTE | 2023-10-08 09:31 | CA_ITS ---
Transthoracic Echocardiogram Patient (Last, First, Middle): Vincent Askew Adrian Gender: Male Date of : 1965 Age: 57 Procedure Date: 10/08/2023 Procedure Type: Transthoracic Echocardiogram Location: OP Height: 162.56 cm Weight: 69.85 kg BSA: 1.75 m2 Heart Rate: bpm BP: 130 / 66 mmHg [employer] Paraprofessional: TO Referring MD: Isidoro Palmer MD Stacker Straightener: Fredi Carballo MD Symptoms: I49.9 - Cardiac arrhythmia, unspecified Study Quality: Fair/Contrast ECG Rhythm: Sinus Conclusions: - Normal study Findings Procedure Information Contrast agent, definity, is being given per protocol without apparent complications. Left Ventricle Normal left ventricular size, thickness, and systolic function. The visually estimated ejection fraction is between 55-60%. Spectral Doppler is indicative of a normal filling pattern. Right Ventricle Normal right ventricular cavity size and systolic function. Atria Both atria are normal in size. There is no evidence of interatrial shunt. Aortic Valve Normal aortic valve structure and function. There is no aortic valve stenosis. There is no aortic valve regurgitation. Mitral Valve Normal mitral valve structure and function. There is trace mitral valve regurgitation. There is no mitral valve stenosis. Pulmonic Valve The pulmonic valve is likely normal. Tricuspid Valve Normal tricuspid valve structure. There is trace tricuspid valve regurgitation. The right ventricular systolic pressure is normal. The right ventricular systolic pressure is 17 mmHg. Normal right atrial pressure. There is no evidence of pulmonary hypertension. Great Vessels All visible segments of the aorta are normal in size. The pulmonary artery was not well visualized. Venous The inferior vena cava is normal in size and collapses greater than 50% with inspiration. Pericardium/Pleural There is no evidence of pericardial effusion. Prior Study Comparison No prior study available for comparison. Measurements 2D Linear Measurements IVSd: 0.90 0.6-0.9/0.6-1.0 cm LVIDd: 4.53 3.9-5.3/4.2-5.9 cm LVIDd Index: 2.59 2.4-3.2/2.2-3.1 cm/m2 LVIDs: 2.98 2.0-3.6 cm LVPWd: 0.69 0.7-1.1 cm LA Diam: 3.30 2.7-3.8/3.0-4.0 cm LAIDs Index: 1.89 1.5-2.3 cm/m2 LV Mass: 141.59 67-162/88-224 g LV Mass Index: 80.91 43-95/49-115 g/m2 LVOT Diam: 2.00 3.0+(-)1.3 cm 2D Systolic Function EF 4C: 59.60 >55% EF 2C: 56.90 >55% EF BiP: 58.40 >55% Mitral Valve MV Pk E: 0.75 MV PK A: 0.70 MV Decel Time: 211.00 E/A: 1.10 E'Lateral: 11.20 E'Medial: 6.96 E/E' Med: 10.70 E/E' Lat: 6.70 PHT: 62.00 MVA PHT: 3.55 Decel [place]: 3.54 Aortic Valve AoV Pk Ameya: 1.72 AoV Mn Ameya: 0.97 AoV VTI: 0.32 AoV Pk Grad: 12.00 Aov Mn Grad: 5.00 BRISA Cont.VTI: 2.33 LVOT LVOT Pk Ameya: 1.29 LVOT Mn Ameya: 0.74 LVOT VTI: 0.24 LVOT Pk Grad: 7.00 LVOT Mn Grad: 3.00 LVOT Diam: 2.00 LVOT Area: 3.14 Diastolic Function MV Pk E: 0.75 MV Pk A: 0.70 E/A: 1.10 E'Medial: 6.96 E/E' Med: 10.70 E' Laterial: 11.20 E/E' Lat: 6.70 Right Ventricle TAPSE (mm): 24.30 TVS' Ameya: 13.10 Tricuspid Valve TR Pk Ameya: 1.87 TR Pk Grad: 14.00 RA Press: 3.00 RVSP: 17.00 Great Vessels Aorta Sinus of Valsalva: 2.88 2.0-3.5 cm Ao Asc: 2.90 2.1-3.4 cm Updated in Other Vendor System with Status of Final Fredi Carballo MD electronically signed on 10/10/2023 12:45:24 PM with status of Final
== END ==
LOC: HO.CARD 09:28
PROVIDERS: PCP Internal Medicine; Visit Provider Internal Medicine
DX: I49.9 Cardiac arrhythmia, unspecified (principal); I49.3 Ventricular premature depolarization
CPT/HCPCS: 93225; 93306; Q9957

== ENCOUNTER → 2023-10-08 09:31 | Outpatient (BNV) | payer OTHER, SELFPAY | PROVIDERS: PCP Internal Medicine; Visit Provider Internal Medicine Cardiovascular Disease | DX: I49.9 Cardiac arrhythmia, unspecified (principal) | CPT/HCPCS: 93227; 93306 ==

== ENCOUNTER 2023-10-26 12:44 | Outpatient (AMB) | payer OTHER, SELFPAY ==
--- NOTE | 2023-10-26 12:48 | A.OFFVIS_ITS ---
Intake Vital Signs 10/26/23 12:50 Height 5 ft 4 in Weight 163 lb 2.273 oz BMI 28.0 BP 140/71 H Blood Pressure Location Lt brachial Position Sitting Pulse 63 Intake Visit Reasons: 3 month follow up PT N/S last appt Intake Note: Vincent presents in the office as a 3 month follow up. CC: He states that he has been taking prilosec. Sometimes he will take one and wait 2 days. Allergies TUNA FISH Allergy (Unknown, Uncoded 10/26/23 12:51) UNKNOWN Medication List - Last Reconciled 10/26/23 by Kandace Willis PA-C albuterol sulfate 90 mcg/actuation (Ventolin HFA) 1 inh inhalation QID PRN 30 days citalopram 40 mg PO QAM cyclobenzaprine 10 mg PO TID PRN hydroxyzine HCl 50 mg PO BID PRN zolpidem 10 mg PO BEDTIME PRN HPI HPI Comments History of Present Illness Details 57-year-old male follows up with acid re flux and NAFLD Trial of pantoprazole for acid reflux however he feels that Prilosec gives him better coverage she has been using his 's so they are sharing- He has no other GI or general complaints He had a muscle injury from lifting a ladder-seeing cardiology- Reviewed labs- and U/S from 11/2022 No nausea, vomiting, hematemesis, hematochezia fever chills PFSH Medical History Premature ventricular complex Anxiety, generalized Major depression, recurrent GERD without esophagitis Surgical History Hx of colonoscopy Social History Housing: House Patient Tobacco Use Status: Never used Tobacco e-Cigarette/Vaping Use: Never Used Current occupational status: retired Cognitive needs: No Hearing needs: No Vision needs: No Review of Systems Const Details: All systems reviewed and are negative Physical Exam Vital Signs: Last Vital Signs Pulse 63 10/26/23 12:50 BP 140/71 H 10/26/23 12:50 BMI result Body Mass Index 28.0 Const General: cooperative, healthy appearing, comfortable and no acute distress Orientation/consciousness: patient oriented x3 Limitations: no limitations Eyes Sclerae: sclerae normal Resp Effort & Inspection: normal respiratory effort and able to speak in complete sentences Auscultation: clear to auscultation bilaterally, no rales, no rhonchi and no wheezes Cardio Rate: regular rate Rhythm: regular rhythm (no arryth. noted) Heart sounds: S1 normal heart sound present and S2 normal heart sound present GI Palpation (GI): Soft to palpation and nontender Auscultation: normal bowel sounds Skin General skin exam: no rashes or lesions noted Neuro General: patient oriented x3 Extrem General: Yes full ROM Psych Appearance: grossly normal and well kempt Mental Status: mental status grossly normal Speech and movement: Normal speech and movement present and Clear speech present Affect: normal affect Attitude: cooperative Thought process: Normal thought process present Thought content: Normal thought content present Insight: Good insight present (Psych) Judgement: Good judgement present (Psych) Results Reviewed Results Reviewed: US/US abdomen comp w elastography IMPRESSION: 1. Impression: Slightly echogenic liver probably representing fatty infiltration. Small right renal cyst. No imaging follow-up recommended. Limited visualization of the tail of the pancreas. 2. Liver elastography: Slightly limited due to sampling error. Normal liver stiffness. Assessment & Plan Assessment & Plan (1) Mild heartburn: Comment: [email or web address] good response Code(s): R12 - Heartburn Plan: prilosec= sent script (2) NAFLD (nonalcoholic fatty liver disease): Comment: Reviewed ultrasound, reviewed blood work lifestyle dietary change, he does not drink Code(s): K76.0 - Fatty (change of) liver, not elsewhere classified Plan: L/S modifications Review labs liver enzymes normal Plan prilosec Medications: New omeprazole magnesium (Prilosec OTC) 20 mg PO DAILY 30 tabs 3RF 30 days Patient Instructions: prilosec 20 mg Reflux precautions reviewed Continue to abstain from alcohol and avoid culprits Discuss lifestyle-with NAFLD Reviewed ultrasound from last november Follow-up 6 months-or he can follow back with his PCP, liver enzymes are normal Encouraged to call questions or concerns Coding Level of Care Code Est Pt Level 3 (53342) Diagnoses Mild heartburn R12 NAFLD (nonalcoholic fatty liver disease) K76.0 Time Spent (min) 25
[2023-10-26 12:50] VITALS: BP 140/71; PULSE 63; BMI 28.0
== END 2023-10-26 13:19 | disposition home or self-care (01) ==
PROVIDERS: PCP Internal Medicine; Visit Provider Physician Assistant
DX: R12 Heartburn (principal); K76.0 Fatty (change of) liver, not elsewhere classified
CPT/HCPCS: 99213

== ENCOUNTER → 2023-10-26 12:44 | Outpatient (BNVA) | payer OTHER, SELFPAY | PROVIDERS: PCP Internal Medicine; Visit Provider Physician Assistant | DX: K76.0 Fatty (change of) liver, not elsewhere classified (principal); R12 Heartburn | CPT/HCPCS: 99212 ==

== ENCOUNTER 2023-12-01 12:34 | Outpatient (AMB) | payer OTHER, SELFPAY ==
[2023-12-01 12:54] VITALS: BP 130/80; PULSE 67; O2SAT 96; BMI 27.5
--- NOTE | 2023-12-01 12:54 | MHC.OFFVIS ---
Vital Signs 12/01/23 12:54 Height 5 ft 4 in Weight 160 lb 0.889 oz BMI 27.5 BP 130/80 Blood Pressure Location Rt brachial Position Sitting Pulse 67 Pulse Source Pulse Oximeter Pulse Oximetry (%) 96 Intake Visit Reasons: NPV/[place]/Cardiac arrhythmia Information Systems Technician Required: No Accompanied by: Self / Same As Patient Allergies TUNA FISH Allergy (Unknown, Uncoded 10/26/23 12:51) UNKNOWN Medication List - Last Reconciled 12/01/23 by Bobby Davila MD albuterol sulfate 90 mcg/actuation (Ventolin HFA) 1 inh inhalation QID PRN 30 days citalopram 40 mg PO QAM cyclobenzaprine 10 mg PO TID PRN hydroxyzine HCl 50 mg PO BID PRN omeprazole magnesium (Prilosec OTC) 20 mg PO DAILY 30 days zolpidem 10 mg PO BEDTIME PRN HPI Comments Details: Vincent is here for consultation regarding PVCs. Patient states that he had an episode of chest pain few months back. This happened when he was lying down and not exertional. It seems he can not seen in the ER and was thought to be rather musculoskeletal. Otherwise, he is undergone workup and the Holter shows frequent PVCs and hence he has been referred here. Patient not had any further episodes of chest pain. Otherwise, quite active with no major limitations. No known cardiac issues including coronary artery disease or myocardial infarction or cardiomyopathy. [facility] Medical History Premature ventricular complex Anxiety, generalized Major depression, recurrent GERD without esophagitis Surgical History Hx of colonoscopy Family History (Updated 12/01/23 @ 13:07 by Bobby Davila MD) Father No problems noted. Mother No problems noted. Social History Housing: House Patient Tobacco Use Status: Never used Tobacco e-Cigarette/Vaping Use: Never Used Current occupational status: retired Cognitive needs: No Hearing needs: No Vision needs: No Review of Systems Const Denies chills, Denies fatigue, Denies fever(s), Denies frequent falls, Denies weakness, Denies weight gain and Denies weight loss ENT Denies dizziness Card Denies chest pain, Denies leg edema, Denies lightheadedness, Denies palpitations, Denies dyspnea, Denies dyspnea on exertion and Denies orthopnea Resp Denies cough, Denies dyspnea and Denies dyspnea on exertion GI Denies bloating and Denies change in bowel habits Musc Denies muscle weakness, Denies numbness and Denies tingling Neuro Denies dizziness, Denies frequent falls, Denies numbness, Denies tingling and Denies weakness Endo Denies fatigue and Denies palpitations Physical Exam Vital Signs: Last Vital Signs Pulse 67 12/01/23 12:54 BP 130/80 12/01/23 12:54 Pulse Ox 96 12/01/23 12:54 BMI result Body Mass Index 27.5 Const General: comfortable and no acute distress Orientation/consciousness: patient oriented x3 HEENT Other: Unremarkable Head: Yes normal to inspection Neck Neck: Yes normal visual inspection Chest Chest palpation & inspection: normal inspection of the chest Resp Auscultation: clear to auscultation bilaterally Cardio Palpation: normal PMI Heart sounds: S1 normal heart sound present, S2 normal heart sound present, no gallops, no murmurs and no rubs GI Palpation (GI): Soft to palpation Back/Spine/Pelvis Other: unremarkable Skin General skin exam: no rashes or lesions noted Neuro General: patient oriented x3 Extrem General: Yes normal to inspection Psych Mental Status: mental status grossly normal Assessment & Plan Assessment & Plan (1) Precordial chest pain: Code(s): R07.2 - Precordial pain Category: Medical (2) PVC (premature ventricular contraction): Code(s): I49.3 - Ventricular premature depolarization Category: Medical Plan Recent EKG shows sinus rhythm at 69/Min; no significant ST-T changes and otherwise unremarkable. Normal IN and corrected QT. Echocardiogram with normal LVEF, 55-60% no significant valvular abnormalities and otherwise unremarkable. In the Holter, underlying sinus rhythm. Frequent PVCs with a burden of 15%. Isolated beats and no significant runs. Will perform an exercise stress perfusion imaging study. We can see if PVCs get worse with exercise or not. Will also assess for any ischemia. Follow-up after the above. Orders: Orders CA stress test Today R07.2 - Precordial pain NM cardiolite stress test Today R07.2 - Precordial pain Coding Level of Care Code New Pt Level 4 (23408) Diagnoses Precordial chest pain R07.2 PVC (premature ventricular contraction) I49.3
== END 2023-12-01 13:12 | disposition home or self-care (01) ==
PROVIDERS: PCP Internal Medicine; Visit Provider Internal Medicine
DX: I49.3 Ventricular premature depolarization (principal); R07.2 Precordial pain
CPT/HCPCS: 99214

== ENCOUNTER → 2023-12-01 12:34 | Outpatient (BNVA) | payer OTHER, SELFPAY | PROVIDERS: PCP Internal Medicine; Visit Provider Internal Medicine | DX: I49.3 Ventricular premature depolarization (principal); R07.2 Precordial pain | CPT/HCPCS: 99212 ==

== ENCOUNTER → 2024-01-07 09:01 | Outpatient (REF) | payer OTHER, SELFPAY ==
--- NOTE | 2024-01-07 09:04 | CA_ITS ---
Acquisition Time: 2024-01-07 09:38:30 Total Exercise Time: 00:06:43 Test Indications: CP, PVC'S Medications: SEE H Protocol: CARLI Max HR: 144 BPM 90% of Pred: 160 BPM Max BP: 152/068 mmHG Max Work Load: 8.0 METS Exercise stress test exercise 6 min 43 sec of Carli protocol achieving 90% MPHR, without anginal symptoms,w ith frequent PVCs, with normotensive response to exercise, without EKG changes. Nuclear images pending. Test reviewed with Dr. Davila. Referred By: Bobby Davila Overread By: Eliana Zapata
== END ==
LOC: HO.CARD 09:01
PROVIDERS: PCP Internal Medicine; Visit Provider Internal Medicine
DX: R07.2 Precordial pain (principal)
CPT/HCPCS: 78452; 93017; A9500

== ENCOUNTER → 2024-01-07 09:04 | Outpatient (BNV) | payer OTHER, SELFPAY | PROVIDERS: PCP Internal Medicine; Visit Provider Nurse Practitioner | DX: R07.2 Precordial pain (principal) | CPT/HCPCS: 78452; 93016; 93018 ==

== ENCOUNTER 2024-02-02 09:41 | Outpatient (AMB) | payer OTHER, SELFPAY ==
[2024-02-02 09:45] VITALS: BP 124/70; PULSE 67; O2SAT 98; BMI 26.0
--- NOTE | 2024-02-02 09:45 | A.OFFPC_ITS ---
Vital Signs 02/02/24 09:45 Height 5 ft 4 in Weight 151 lb 4 oz BMI 26.0 BP 124/70 Blood Pressure Location Rt brachial Position Sitting Pulse 67 Pulse Source Pulse Oximeter Pulse Oximetry (%) 98 Oxygen Delivery Method Room Air Intake Visit Reasons: fell of ladder 2m ago/severe neck pain Allergies TUNA FISH Allergy (Unknown, Uncoded 10/26/23 12:51) UNKNOWN Medication List - Last Reconciled 02/02/24 by Isidoro Palmer MD albuterol sulfate 90 mcg/actuation (Ventolin HFA) 1 inh inhalation QID PRN 30 days citalopram 40 mg PO QAM cyclobenzaprine 10 mg PO TID PRN hydroxyzine HCl 50 mg PO BID PRN omeprazole 20 mg PO DAILY zolpidem 10 mg PO BEDTIME PRN Tobacco use date assessed: 02/02/24 Dental Screening Dental Screen Date: 02/02/24 Did you have a dental visit in the last 12 months?: Yes Did you have a dental problem in the last 6 months where you did not have access to dental care?: No Was dental information given to patient?: Patient has dentist HPI fell of ladder 2m ago/severe neck pain HPI Details Patient is 58-year-old gentleman came in today to be evaluated for neck pain Patient says that 2 months ago he fell off his for feet letter and hit his head and left shoulder Since then he has been having pain in his neck mostly on the left side radiating towards back of his head When he moves in certain direction He does not have any weakness in his arms or legs There is no difficulty walking, there is no blurring of vision There was no nausea vomiting after the fall On examination his motor function is equal both arms However he does have shooting pain with the movement of the neck left side going up his scalp. I have ordered x-ray of his cervical spine to start the workup He might also need MRI [facility] Medical History Premature ventricular complex Anxiety, generalized Major depression, recurrent GERD without esophagitis Surgical History Hx of colonoscopy Family History Father No problems noted. Mother No problems noted. Social History Housing: House Patient Tobacco Use Status: Never used Tobacco e-Cigarette/Vaping Use: Never Used service: No Current occupational status: retired Cognitive needs: No Hearing needs: No Vision needs: No Questionnaire AUDIT C Alcohol Use Questionnaire (AUDIT-C) 1. How often do you have a drink containing alcohol?: Never 3. How often do you have six or more drinks on one occasion?: Never Total Score: 0 Score Reviewed/Action Taken: Yes Review of Systems Const Denies chills and Denies fever(s) ENT Denies epistaxis and Denies nasal discharge Card Denies chest pain Resp Denies chest congestion, Denies cough and Denies hemoptysis GI Denies diarrhea and Denies nausea Skin/Breast Denies rash Neuro Reports no additional complaints Psych Reports no additional complaints Endo Reports no additional complaints Physical exam (Primary Care) Vital Signs: Last Vital Signs Pulse 67 02/02/24 09:45 BP 124/70 02/02/24 09:45 Pulse Ox 98 02/02/24 09:45 Oxygen Delivery Method Room Air 02/02/24 09:45 BMI result Body Mass Index 26.0 Tobacco/Smoking Status: Tobacco use Status Tobacco use date assessed 02/02/24 02/02/24 09:47 Patient Tobacco Use Status Never used Tobacco 02/02/24 09:47 e-Cigarette/Vaping Use Never Used 02/02/24 09:47 Const General: cooperative, comfortable and no acute distress Orientation/consciousness: patient oriented x3 HENMT Head: Yes normocephalic Eyes General: appearance normal, both eyes and all related structures Resp Effort & Inspection: normal respiratory effort, no cough and no stridor Cardio Rhythm: regular rhythm Heart sounds: S1 normal heart sound present and S2 normal heart sound present Skin General skin exam: turgor normal Neuro Other: Limited range of motion of neck due to pain left side radiating to scalp mostly with the movement to right Motor sensory intact upper extremity Eye exam within normal limit General: patient oriented x3, tone normal and moves all extremities Extrem Right lower extremity: no edema Left lower extremity: no edema Assessment and Plan Assessment & Plan (1) Radiculitis of left cervical region: Code(s): M54.12 - Radiculopathy, cervical region (2) Cervicalgia: Code(s): M54.2 - Cervicalgia (3) Fall: Code(s): W19.XXXA - Unspecified fall, initial encounter Qualifiers: Encounter type: initial encounter Qualified Code(s): W19.XXXA - Unspecified fall, initial encounter (4) Neck injury: Code(s): S19.9XXA - Unspecified injury of neck, initial encounter Qualifiers: Encounter type: initial encounter Qualified Code(s): S19.9XXA - Unspecified injury of neck, initial encounter Plan Patient is 58-year-old gentleman came in today to be evaluated for neck pain Patient says that 2 months ago he fell off his for feet letter and hit his head and left shoulder Since then he has been having pain in his neck mostly on the left side radiating towards back of his head When he moves in certain direction He does not have any weakness in his arms or legs There is no difficulty walking, there is no blurring of vision There was no nausea vomiting after the fall On examination his motor function is equal both arms However he does have shooting pain with the movement of the neck left side going up his scalp. I have ordered x-ray of his cervical spine to start the workup He might also need MRI Orders: Orders XR cervical spine 2V Today M54.2 - Cervicalgia Coding Level of Care Code Est Pt Level 4 (43391) Diagnoses Radiculitis of left cervical region M54.12 Cervicalgia M54.2 Fall, initial encounter W19.XXXA Encounter type: initial encounter Injury of neck, initial encounter S19.9XXA Encounter type: initial encounter
== END 2024-02-02 17:47 | disposition home or self-care (01) ==
PROVIDERS: PCP Internal Medicine; Visit Provider Internal Medicine
DX: M54.12 Radiculopathy, cervical region (principal); M54.2 Cervicalgia; W19.XXXA Unspecified fall, initial encounter; S19.9XXA Unspecified injury of neck, initial encounter
CPT/HCPCS: 99214

== ENCOUNTER 2024-02-02 09:56 | Outpatient (REF) | payer OTHER, SELFPAY ==
--- NOTE | ~2024-02-02 | XR_ITS ---
EXAMINATION: XR CERVICAL SPINE CLINICAL INFORMATION: Neck pain COMPARISON: None available. TECHNIQUE: 3 views of the cervical spine were obtained. FINDINGS: Prevertebral soft tissues normal. There is marginal spurring observed C5-C6 and C6-C7. No fracture or destructive process. XR/XR cervical spine 2V IMPRESSION: Mild degenerative change. No acute findings.
== END 2024-02-02 09:57 | disposition home or self-care (01) ==
LOC: HO.HMGCX 09:56
PROVIDERS: PCP Internal Medicine; Visit Provider Internal Medicine
DX: M54.2 Cervicalgia (principal)
CPT/HCPCS: 72040

== ENCOUNTER 2024-02-22 13:44 | Outpatient (AMB) | payer OTHER, SELFPAY ==
[2024-02-22 13:54] VITALS: BP 120/72; PULSE 62; BMI 26.3
--- NOTE | 2024-02-22 13:54 | MHC.OFFVIS ---
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 Recently seen in consultation regarding PVCs. He had an episode of chest pain for which, he underwent ER evaluation. Thought to be musculoskeletal. Then underwent further workup including Holter which showed PVCs. Patient himself feels fine. He has not had any further chest pain or in fact any cardiac symptoms. Fairly active with no limitations. No previous cardiac history. [facility] Medical History Premature ventricular complex Anxiety, generalized Major depression, recurrent GERD without esophagitis Surgical History Hx of colonoscopy Family History Father No problems noted. Mother No problems noted. Social History Housing: House Patient Tobacco Use Status: Never used Tobacco e-Cigarette/Vaping Use: Never Used service: No Current occupational status: retired Cognitive needs: No Hearing needs: No Vision needs: No Review of Systems ENT Reports dizziness Card Denies chest pain, Denies chest pain at rest, Denies chest pain with activity, Denies rapid heart rate, Denies pedal edema, Denies edema, Denies leg edema, Denies lightheadedness, Denies palpitations, Denies dyspnea, Denies dyspnea on exertion and Denies orthopnea Resp Denies cough, Denies dyspnea and Denies dyspnea on exertion GI Denies hematochezia and Denies change in stool character Musc Denies abnormal gait, Reports limited range of motion, Reports muscle cramps, Denies muscle weakness, Denies numbness, Denies radiating pain into limb, Denies stiffness and Denies tingling Neuro Denies abnormal gait, Reports dizziness, Denies numbness and Denies tingling Endo Denies palpitations Physical Exam Vital Signs: Last Vital Signs Pulse 62 02/22/24 13:54 BP 120/72 02/22/24 13:54 BMI result Body Mass Index 26.3 Const General: comfortable and no acute distress Orientation/consciousness: patient oriented x3 HEENT Other: Unremarkable Head: Yes normal to inspection Neck Neck: Yes normal visual inspection Chest Chest palpation & inspection: normal inspection of the chest Resp Auscultation: clear to auscultation bilaterally Cardio Palpation: normal PMI Heart sounds: S1 normal heart sound present, S2 normal heart sound present, no gallops, no murmurs and no rubs GI Palpation (GI): Soft to palpation Back/Spine/Pelvis Other: unremarkable Skin General skin exam: no rashes or lesions noted Neuro General: patient oriented x3 Extrem General: Yes normal to inspection Psych Mental Status: mental status grossly normal Assessment & Plan Assessment & Plan (1) PVC (premature ventricular contraction): Code(s): I49.3 - Ventricular premature depolarization Category: Medical Plan Cardiac studies reviewed. EKG with sinus rhythm at 69/Min; no significant ST-T changes and otherwise unremarkable. Normal NM and corrected QT. Echocardiogram with normal LVEF, 55-60% no significant valvular abnormalities and otherwise unremarkable. In the Holter, underlying sinus rhythm. Frequent PVCs with a burden of 15%. Isolated beats and no significant runs. In the exercise stress test, he was able to exercise for 6 minutes and 43 seconds on Aquiles protocol; reached target heart rate, 8 METS workload; no angina; frequent PVCs; no EKG evidence of ischemia. Perfusion imaging was unremarkable. Overall, frequent PVCs but no evidence of any ischemia on stress testing or cardiomyopathy on echocardiogram. Will get a cardiac MRI for scar assessment. Patient states he did use drugs in the past and it is possible that he had some myocardial injury from that. We can see him back in follow-up after the MRI is completed. Total time spent including review of data, counseling, documentation, coordination of care-32 minutes. Orders: Orders MR cardiac morph fnct w con Today I42.9 - Cardiomyopathy, unspecified, I49.3 - Ventricular premature depolarization Basic Metabolic Panel Today I49.3 - Ventricular premature depolarization Coding Level of Care Code Est Pt Level 4 (62957) Diagnoses PVC (premature ventricular contraction) I49.3
== END 2024-02-22 14:58 | disposition home or self-care (01) ==
PROVIDERS: PCP Internal Medicine; Visit Provider Internal Medicine
DX: I49.3 Ventricular premature depolarization (principal)
CPT/HCPCS: 99214

== ENCOUNTER → 2024-02-22 13:44 | Outpatient (BNVA) | payer OTHER, SELFPAY | PROVIDERS: PCP Internal Medicine; Visit Provider Internal Medicine | DX: I49.3 Ventricular premature depolarization (principal) | CPT/HCPCS: 99212 ==

== ENCOUNTER 2024-05-29 08:54 | Outpatient (REF) | payer OTHER, SELFPAY ==
[2024-05-29 11:04] LABS: Anion Gap 9 (12-20); Blood Urea Nitrogen 12 mg/dL (9-16); Calcium 9.4 mg/dL (8.4-10.2); Carbon Dioxide 29 mmol/L (22-29); Chloride 109 mmol/L (96-108); Estimated Glomerular Filt Rate > 60; Glucose Random 86 mg/dL (60-115); Potassium 4.6 mmol/L (3.3-5.1); Sodium 142 mmol/L (135-145)
== END 2024-05-29 08:55 | disposition home or self-care (01) ==
LOC: HO.LAB 08:54
PROVIDERS: PCP Internal Medicine; Visit Provider Internal Medicine
DX: I49.3 Ventricular premature depolarization (principal)
CPT/HCPCS: 36415; 80048

== ENCOUNTER 2024-08-12 09:09 | Outpatient (AMB) | payer OTHER, SELFPAY ==
[2024-08-12 09:21] VITALS: BP 122/76; PULSE 60; TEMP 36.6; O2SAT 98; BMI 26.3
--- NOTE | 2024-08-12 09:21 | MHC.OFFWIV ---
Intake Vital Signs 08/12/24 09:21 Height 5 ft 4 in Weight 153 lb BMI 26.3 BP 122/76 Blood Pressure Location Lt brachial Position Sitting Pulse 60 Pulse Source Pulse Oximeter Temp 97.8 F Temp Source Oral Pulse Oximetry (%) 98 Intake Visit Reasons: EP Elbow muscle ache Intake Note: pt s here for elbow pain, over extended ligaments and its been over a month and pain hasnt resided. Patient Tobacco Use Status: Never used Tobacco Allergies TUNA FISH Allergy (Unknown, Uncoded 08/12/24 09:22) UNKNOWN Do you need a note to return to daycare/school/sports/work: No HPI EP Elbow muscle ache HPI Details Complaint of B/L elbow pain, right worse than left - Pt says he hyperextended R elbow and its been over a month and pain hasnt resolved. However, patient notes that he has bilateral pain and indicate lateral epicondyle pain. He notes this worsens with manual dexterity chores. Tried doing exercises which made it worse. [facility] Medical History Premature ventricular complex Anxiety, generalized Major depression, recurrent GERD without esophagitis Surgical History Hx of colonoscopy Family History Father No problems noted. Mother No problems noted. Social History Housing: House Patient Tobacco Use Status: Never used Tobacco e-Cigarette/Vaping Use: Never Used service: No Current occupational status: retired Cognitive needs: No Hearing needs: No Vision needs: No Review of Systems Const Denies chills, Denies fatigue, Denies fever(s), Denies headache(s) and Denies weakness ENT Denies dizziness and Denies headache(s) Card Denies chest pain, Denies lightheadedness, Denies dyspnea and Denies other (Palpitations) Resp Denies cough, Denies dyspnea, Denies wheezing and Denies other ( shortness of breath) Musc Details: Bilateral elbow discomfort at lateral epicondyles Denies numbness and Denies tingling Neuro Denies dizziness, Denies headache(s), Denies numbness, Denies tingling, Denies paresthesias and Denies weakness Psych Denies anxiety and Denies depression Endo Denies fatigue Aller/Immun Denies wheezing Physical Exam Vital Signs: Last Vital Signs Temp 97.8 F 08/12/24 09:21 Pulse 60 08/12/24 09:21 BP 122/76 08/12/24 09:21 Pulse Ox 98 08/12/24 09:21 BMI result Body Mass Index 26.3 Const General: no acute distress and well developed Nutritional Appearance: well nourished Orientation/consciousness: patient oriented x3 HEENT Head: Yes normocephalic and Yes atraumatic Eyes General: appearance normal, both eyes and all related structures Pupils: Equal, round and reactive pupils present EOM: EOMs intact bilaterally Resp Effort & Inspection: normal respiratory effort Neuro General: patient oriented x3 and gait normal Cranial nerves: Yes Equal, round and reactive pupils present Extrem Other: Bilateral lateral epicondyle tenderness and bilateral pronator tenderness as well. Psych Affect: normal affect Assessment & Plan Assessment & Plan (1) Lateral epicondylitis: Code(s): M77.10 - Lateral epicondylitis, unspecified elbow Plan: Relative rest Ice Compression - he can try forearm brace Elevation NSAIDs. Patient notes that ibuprofen does give him some discomfort in his stomach. Will give him a script for celecoxib. As this has been going on or than a month - will order occupational therapy. Orders: Orders OT Evaluation and Treatment Today M77.10 - Lateral epicondylitis, unspecified elbow Medications: New celecoxib 200 mg PO BID 14 days 28 caps 0RF Coding Level of Care Code Est Pt Level 3 (38146) Diagnoses Lateral epicondylitis M77.10
== END 2024-08-12 11:53 | disposition home or self-care (01) ==
LOC: HO.HMCWIC 09:09
PROVIDERS: PCP Internal Medicine; Visit Provider Family Medicine
DX: M77.10 Lateral epicondylitis, unspecified elbow (principal)

== ENCOUNTER → 2024-08-12 09:09 | Outpatient (BNVA) | payer OTHER, SELFPAY | PROVIDERS: PCP Internal Medicine; Visit Provider Family Medicine | DX: M77.12 Lateral epicondylitis, left elbow (principal); M77.11 Lateral epicondylitis, right elbow | CPT/HCPCS: 99212 ==

== ENCOUNTER 2025-05-02 09:14 | Emergency (ER) | payer OTHER, SELFPAY ==
--- NOTE | ~2025-05-02 | CT_ITS ---
EXAMINATION: CT HEAD WITHOUT CONTRAST CLINICAL INFORMATION: Right-sided headache for one week COMPARISON: None available. TECHNIQUE: Contiguous axial imaging was performed from the skull base to vertex without intravenous administration of contrast. This CT examination was performed using dose optimization techniques as appropriate, variously including the following: *Automated exposure control *Adjustment of mA and/or kV according to patient size (this includes techniques or standardized protocols for targeted exams where dose is matched to indication/reason for exam; i.e. extremities or head) *Use of iterative reconstruction technique FINDINGS: There is no acute ischemic change. There is no intracranial hemorrhage. There is no mass-effect or midline shift. Basal cisterns and ventricles are within normal limits for age/cerebral volume. Orbits are symmetrical and unremarkable. Small mucous retention cyst is present in the right maxillary sinus, lateral wall toward the floor. There are no bony abnormalities. CT/CT head/brain wo IV con IMPRESSION: No acute intracranial abnormality. Electronically signed by: Clifford Mcneill MD 05/02/2025 11:38 AM EDT
[2025-05-02 09:24] VITALS: BP 146/70; PULSE 54; RESP 16; TEMP 37; O2SAT 97; BMI 26.1
--- NOTE | 2025-05-02 10:45 | ED.HA ---
HPI - Headache General Chief Complaint: Headache Stated Complaint: fall a yr ago, headache for week w/ blurred vision Time Seen by Provider: 05/02/25 10:44 Source: patient Mode of arrival: ambulatory Limitations: no limitations History of Present Illness ED Provider: Dr. Jj Doherty HPI Narrative: 59-year-old male with a history of asthma, depression, anxiety who presents emergency department for evaluation of 1 week of constant, pulsating pain located in his right scalp area. Patient points to a specific area on his parietal scalp where he feels the pain but he states the pain is not on his scalp but it is deeper inside. The pain is constant but waxes and wanes in intensity and has a pulsatile component as well as some numbness to the scalp. Denies any face pain. He states that over the last 2 days he has noticed blurred distance vision. He states that 3 weeks prior did have a sore throat and a cough which is productive of bloody sputum but these symptoms resolved. He states that his headache is 7/10 in his worse in his currently 7/10 at the time my evaluation. He denied fever, chills, nausea, vomiting. He does not have any pain in his face or neck. He states that he has had an unintentional 10 lb weight loss over the past month. He denied night sweats. Related Data Home Medications ?Medication ?Instructions ?Recorded ?Confirmed citalopram 40 mg tablet 40 mg PO QAM 03/19/22 02/22/24 hydroxyzine HCl 50 mg tablet 50 mg PO BID PRN anxiety 03/19/22 02/22/24 zolpidem 10 mg tablet 10 mg PO BEDTIME PRN 03/19/22 02/22/24 Previous Rx's ?Medication ?Instructions ?Recorded cervical soft collar #1 ea 02/11/24 omeprazole 20 mg capsule,delayed 20 mg PO DAILY #90 caps 07/21/24 release celecoxib 200 mg capsule 200 mg PO BID 14 days #28 caps 08/12/24 albuterol sulfate 90 mcg/actuation 1 inh inhalation QID PRN shortness 11/07/24 aerosol inhaler (Ventolin HFA) of breath or wheezing 30 days #6.7 grams metoclopramide HCl 10 mg tablet 10 mg PO Q6H PRN Headaches, nausea 05/02/25 (Reglan) and vomiting #14 tabs Allergies Allergy/AdvReac Type Severity Reaction Status Date / Time TUNA FISH Allergy Unknown UNKNOWN Uncoded 05/02/25 09:29 Review of Systems Review of Systems: Yes all other systems are reviewed and are negative [facility] Past Medical History [facility] Narrative: Social history: He denies tobacco use. He occasionally drinks alcohol. He denies drug use. Medical History Premature ventricular complex Anxiety, generalized Major depression, recurrent GERD without esophagitis Surgical History Hx of colonoscopy Family History Family History Father No problems noted. Mother No problems noted. Social History Social History Housing: House Patient Tobacco Use Status: Never used Tobacco e-Cigarette/Vaping Use: Never Used Advance Directives: No Advance Directives Information Provided: Yes service: No Current occupational status: retired Cognitive needs: No Hearing needs: No Vision needs: No Physical Exam Vital Signs: Vital Signs: Last Vital Signs Temp 97.6 F 05/02/25 12:17 Pulse 68 05/02/25 12:17 Resp 18 05/02/25 12:17 BP 144/76 H 05/02/25 12:17 Pulse Ox 97 05/02/25 12:17 O2 Del Method Room Air 05/02/25 12:17 BMI result Body Mass Index 26.1 Vital signs revealed an elevated blood pressure of 146/70 in a low heart rate of 54 Exam: General: Awake, alert in no distress Head: Normocephalic, atraumatic, no lesions noted in his right scalp, no tenderness palpation over the right scalp where he is experiencing the pain EENT: PERRL, sclera and conjunctiva are normal, mouth with no erythema or exudates Neck: Supple, no adenopathy Lung: breath sounds symmetric, no wheezing, no rales and no rhonchi Chest: symmetric movement, nontender Heart: regular rate and rhythm, normal S1, S2 no murmurs or rubs Abdomen: soft, non-tender, nondistended, normal bowel sounds Back: no vertebral tenderness, no CVAT Extremities: no deformities, moves all extremities symmetrically, no edema Neuro: Awake, alert, oriented, normal speech, cranial nerves 2-12 intact, moves all extremities symmetrically Psych: Pleasant, cooperative Medications Administered Discontinued Medications Generic Name Dose Route Start Last Admin Trade Name Cait PRN Reason Stop Dose Admin Diphenhydramine HCl 50 mg 05/02/25 10:56 05/02/25 11:32 Diphenhydramine Hcl 50 Mg/Ml Vial IVPUSH 05/02/25 10:57 50 mg ONCE STA Administration Sodium Chloride 1,000 mls @ 999 mls/hr 05/02/25 10:56 05/02/25 11:33 Ns IV 05/02/25 11:56 999 mls/hr .Q1H1M STA Administration Ketorolac Tromethamine 15 mg 05/02/25 10:56 05/02/25 11:31 Ketorolac Tromethamine 15 Mg/Ml Vial IVPUSH 05/02/25 10:57 15 mg ONCE STA Administration Metoclopramide HCl 10 mg 05/02/25 10:56 05/02/25 11:32 Metoclopramide Hcl 10 Mg/2 Ml Vial IVPUSH 05/02/25 10:57 10 mg ONCE STA Administration Medical Decision Making Medical Decision Making MDM Narrative: 59-year-old male with a history of asthma, depression, anxiety who presents emergency department for evaluation of 1 week of constant, pulsating pain located in his right scalp area. Patient points to a specific area on his parietal scalp where he feels the pain but he states the pain is not on his scalp but it is deeper inside. The pain is constant but waxes and wanes in intensity and has a pulsatile component as well as some numbness to the scalp. Denies any face pain. He states that over the last 2 days he has noticed blurred distance vision. He states that 3 weeks prior did have a sore throat and a cough which is productive of bloody sputum but these symptoms resolved. He states that his headache is 7/10 in his worse in his currently 7/10 at the time my evaluation. He denied fever, chills, nausea, vomiting. He does not have any pain in his face or neck. He states that he has had an unintentional 10 lb weight loss over the past month. He denied night sweats. Vital signs revealed a elevated blood pressure and low heart rate otherwise unremarkable. Physical examination revealed no lesions or abnormality Varsha's noted on his right scalp where he is experiencing the pain. Neurologic exam was nonfocal. Differential diagnosis: ?Includes but is not limited to stroke, intracranial bleed, intracranial mass, shingles, trigeminal neuralgia, giant cell arteritis, anemia, electrolyte abnormalities Course: 11:07 I ordered laboratory evaluation to include CRP and ESR and CT scan of the brain without IV contrast. Also obtain an EKG on the patient. The patient's headache pain was was treated with a Reglan 10 mg IV, Benadryl 50 mg IV and Toradol 15 mg IV 12:24 My independent interpretation patient's laboratory evaluation is as follows: CBC was normal. Potassium high 5.5. BUN normal 16 with an elevated creatinine of 1.44-most likely secondary to volume depletion. CK elevated 254. CRP normal less than 0.10. ESR normal 4. CT scan of the brain without IV contrast revealed no acute abnormalities which is reassuring. Patient's visual acuities were as follows: Right eye 20/30 Left eye 20/30 Bilateral 20/30 Given the negative workup, I suspect that the patient's headache is caused by acute migraine syndrome. It is possible he may have early shingles versus trigeminal neuralgia and I did discuss these possibilities with him. Patient's pain is significantly improved after the above treatment. Patient will and was discharged home with prescription for Reglan. He was advised to take Reglan, Benadryl and Excedrin migraine every 6 hours as needed for pain. He was given printed and verbal instructions and discharged home Differential Diagnosis Differential Diagnoses: The differential diagnosis associated with the presentation includes (See above) Admission/Observation Consideration of admission/observation: Escalation of care including admission/observation considered (Yes) Lab Data MDM Lab Attestation statement: I reviewed the patient's lab results. 05/02/25 11:22 05/02/25 11:22 Labs: Lab Results 05/02/25 Range/Units 11:22 WBC 8.9 (4.8-10.8) X10*3/uL RBC 4.56 L (4.60-5.80) X10*6/uL Hgb 14.7 (14.0-18.0) g/dl Hct 43.3 (42.0-52.0) % MCV 95.0 (80.0-98.0) fL MCH 32.2 (27.0-33.0) pg MCHC 33.9 (31.0-36.0) g/dl RDW 12.6 (11.0-16.0) % Plt Count 309 D (160-400) X10*3/uL MPV 9.4 (9.4-12.4) fL Immature Gran % (Auto) 0.4 (0.0-0.4) % Neut % (Auto) 79.4 H (45-73) % Lymph % (Auto) 11.3 L (20-40) % Mckean % (Auto) 7.4 (2-11) % Eos % (Auto) 1.2 (0-4) % Baso % (Auto) 0.3 (0-2) % Lymph # (Auto) 1.0 L (1.2-4.9) X10*3/uL Mckean # (Auto) 0.7 (0.1-1.2) X10*3/uL Eos # (Auto) 0.1 (0.0-0.4) X10*3/uL Baso # (Auto) 0.0 (0.0-0.2) X10*3/uL Abs Immat Gran (auto) 0.04 H (0.00-0.03) X10*3/uL Absolute Neuts (auto) 7.1 (2.0-8.3) x10*3/uL Absolute Nucleated RBC 0.000 (0.0-0.012) X10*3/uL Nucleated RBC % (auto) 0.0 (0.0-0.2) /100WBC ESR 4 (0-15) MM/HR Sodium 144 (135-145) mmol/L Potassium 5.5 H (3.3-5.1) mmol/L Chloride 110 H (96-108) mmol/L Carbon Dioxide 30 H (22-29) mmol/L Anion Gap 10 L (12-20) BUN 16 (9-16) mg/dL Creatinine 1.44 H (0.5-1.4) mg/dL Estim Creat Clear Calc 43.3 Estimated GFR 50 Random Glucose 95 (60-115) mg/dL Calcium 9.3 (8.4-10.2) mg/dL Magnesium 2.3 (1.6-2.6) mg/dL Total Bilirubin 0.4 (0.0-1.0) mg/dL AST 34 (5-37) U/L ALT 30 (0-40) U/L Alkaline Phosphatase 77 (39-117) U/L Total Creatine Kinase 254 H (38-174) U/L C-Reactive Protein < 0.10 (< or = 0.50) mg/dL Total Protein 7.4 (6.5-8.0) g/dL Albumin 4.5 (3.5-5.0) g/dL Independent Interpretation I performed an independent interpretation of an: EKG Interpretation: My independent interpretation patient's 12 EKG done on 05/02/2025 at 11:14 hours is as follows: Normal sinus rhythm rate of 73, normal CO interval, QRS duration QTC interval, no ST segment elevation, no ST segment depression, no T-wave abnormalities, no PACs, no PVCs. Radiology Impression Discussion of test interpretation with radiology: I have reviewed the radiologist's reading. Radiologist Impression: CT head/brain wo IV con IMPRESSION: No acute intracranial abnormality. Electronically signed by: Clifford Mcneill MD 05/02/2025 11:38 AM EDT Prescription Management I considered prescription management with: Other (Anti migraine medication: Reglan) Chronic Conditions Patient?s care impacted by: Other (Asthma, depression, anxiety) Discharge Plan Discharge Clinical Impression: Headache, migraine Qualifiers: Migraine type: unspecified Status migrainosus presence: without status migrainosus Intractability: not intractable Qualified Code(s): G43.909 - Migraine, unspecified, not intractable, without status migrainosus Patient Disposition: Home, Self-Care Instructions: Migraine Headache (ED) Additional Instructions: Your blood work was unremarkable The CT scan of your brain showed no significant abnormalities which is very reassuring. Your headaches are consistent with a migraine syndrome. I want you to take the following 3 medications together every 6 hours as needed for headache, nausea or vomiting. ?Reglan (metoclopramide) in 10 mg, 1 pill. This has a prescription medication. Benadry (diphenhydramine) l 25 mg, 2 pills. This has an qlej-jes-kyacczq medication and you do not need a prescription. Excedrin migraine (acetaminophen, aspirin, caffeine), 2 pills. This has an qtfl-dvb-ofeaeyw medication and you do not need a prescription After you take these medications, lie down in a dark quiet room and try to fall asleep. ?These medications will make you sleepy, do not drive or work after taking these medications. At this time, do not have any evidence for shingles however if you develop a rash on the right side of your head where your having the pain then you need to see your doctor within 1-2 days to get started on anti shingles medications. Follow-up with your doctor in 2 days. Please return to the emergency department if your symptoms get worse or if you develop any symptoms that are concerning to you. Prescriptions: New metoclopramide HCl [Reglan] 10 mg tablet 10 mg PO Q6H PRN (Reason: Headaches, nausea and vomiting) Qty: 14 0RF No Action (DME) cervical soft collar See Rx Instructions .Route .MEDSUPPLY Qty: 1 0RF Rx Instructions: As directed omeprazole 20 mg capsule,delayed release(DR/EC) 20 mg PO DAILY Qty: 90 1RF albuterol sulfate [Ventolin HFA] 90 mcg/actuation HFA aerosol inhaler 1 inh inhalation QID PRN (Reason: shortness of breath or wheezing) 30 Days Qty: 6.7 1RF zolpidem 10 mg tablet 10 mg PO BEDTIME PRN hydroxyzine HCl 50 mg tablet 50 mg PO BID PRN (Reason: anxiety) citalopram 40 mg tablet 40 mg PO QAM celecoxib 200 mg capsule 200 mg PO BID 14 Days Qty: 28 0RF Print Language: Divehi
--- NOTE | 2025-05-02 11:00 | ECG_ITS ---
Test Reason : HEADACHE Blood Pressure : */* mmHG Vent. Rate : 73 BPM Atrial Rate : 73 BPM P-R Int : 134 ms QRS Dur : 80 ms QT Int : 372 ms P-R-T Axes : 61 52 33 degrees QTcB Int : 409 ms Sinus rhythm with sinus arrhythmia with occasional Premature ventricular complexes Otherwise normal ECG When compared with ECG of 22-Sep-2023 08:09, Premature ventricular complexes are now Present Referred By: Jj Doherty Electronically Signed By: JOANNA PINA MD
[2025-05-02 11:30] LABS: MANUAL DIFF FLAG NO
[2025-05-02 11:32] LABS: Hematocrit 43.3 % (42.0-52.0); Hemoglobin 14.7 g/dl (14.0-18.0); Imm Gran Abs Auto 0.04 X10*3/uL (0.00-0.03); Imm Gran Pct Auto 0.4 % (0.0-0.4); Lymphocytes Absolute Auto 1.0 X10*3/uL (1.2-4.9); Mean Corpuscular HGB Conc 33.9 g/dl (31.0-36.0); Mean Corpuscular Hemoglobin 32.2 pg (27.0-33.0); Mean Corpuscular Volume 95.0 fL (80.0-98.0); NRBC Abs Auto 0.000 X10*3/uL (0.0-0.012); NRBC Pct Auto 0.0 /100WBC (0.0-0.2); Platelet Count 309 X10*3/uL (160-400); Red Blood Count 4.56 X10*6/uL (4.60-5.80); White Blood Count 8.9 X10*3/uL (4.8-10.8)
[2025-05-02 11:50] LABS: Alanine Aminotransferase 30 U/L (0-40); Albumin Level 4.5 g/dL (3.5-5.0); Alkaline Phosphatase 77 U/L (39-117); Anion Gap 10 (12-20); Aspartate Amino Transferase 34 U/L (5-37); Blood Urea Nitrogen 16 mg/dL (9-16); Calcium 9.3 mg/dL (8.4-10.2); Carbon Dioxide 30 mmol/L (22-29); Chloride 110 mmol/L (96-108); Creatinine Clr Calc Pharmacy 43.3; Estimated Glomerular Filt Rate 50; Magnesium 2.3 mg/dL (1.6-2.6); Potassium 5.5 mmol/L (3.3-5.1); Sodium 144 mmol/L (135-145); Total Protein 7.4 g/dL (6.5-8.0)
[2025-05-02 12:17] VITALS: BP 144/76; PULSE 68; RESP 18; TEMP 36.4; O2SAT 97
[2025-05-02 13:05] VITALS: BP 144/76; PULSE 68; RESP 18; TEMP 36.4; O2SAT 97
== END 2025-05-02 13:13 | disposition home or self-care (01) ==
PROVIDERS: Emergency Provider Emergency Medicine Emergency Medical Services; PCP Internal Medicine
DX: G43.909 Migraine, unspecified, not intractable, without status migrainosus (principal); J45.909 Unspecified asthma, uncomplicated; Z79.899 Other long term (current) drug therapy; Z86.79 Personal history of other diseases of the circulatory system; Z87.19 Personal history of other diseases of the digestive system
CPT/HCPCS: 36415; 70450; 80053; 82550; 83735; 85025; 85652; 86140; 93005; 96361; 96374; 96375; 99284; 99285; J1200; J1885; J2765

== ENCOUNTER → 2025-05-02 11:00 | Outpatient (BNV) | payer OTHER, SELFPAY | PROVIDERS: Emergency Provider Emergency Medicine Emergency Medical Services; PCP Internal Medicine; Visit Provider Internal Medicine Cardiovascular Disease | DX: I49.3 Ventricular premature depolarization (principal) | CPT/HCPCS: 93010 ==

== ENCOUNTER → 2025-05-02 11:00 | Outpatient (BNV) | payer OTHER, SELFPAY | PROVIDERS: Emergency Provider Emergency Medicine Emergency Medical Services; PCP Internal Medicine; Visit Provider Radiology Diagnostic Radiology | DX: R51.9 Headache, unspecified (principal) | CPT/HCPCS: 70450 ==

== ENCOUNTER 2025-06-05 08:08 | Outpatient (AMB) | payer OTHER, SELFPAY ==
--- NOTE | 2025-06-05 08:19 | MHC.PC.OV ---
Vital Signs 06/05/25 08:21 Height 5 ft 3 in Intake Visit Reasons: EP-severe headaches, blurry vision Allergies TUNA FISH Allergy (Unknown, Uncoded 05/02/25 09:29) UNKNOWN Tobacco use date assessed: 06/05/25 Dental Screening Dental Screen Date: 02/02/24 [facility] Medical History Premature ventricular complex Anxiety, generalized Major depression, recurrent GERD without esophagitis Surgical History Hx of colonoscopy Family History Father No problems noted. Mother No problems noted. Social History Housing: House Patient Tobacco Use Status: Never used Tobacco e-Cigarette/Vaping Use: Never Used service: No Current occupational status: retired Cognitive needs: No Hearing needs: No Vision needs: No Physical exam (Primary Care) Tobacco/Smoking Status: Tobacco use Status Tobacco use date assessed 02/02/24 02/02/24 09:47 Patient Tobacco Use Status Never used Tobacco 08/12/24 09:24 e-Cigarette/Vaping Use Never Used 02/02/24 09:47 Coding
[2025-06-05 08:21] VITALS: BP 115/73; PULSE 78; RESP 16; TEMP 36.8; O2SAT 97; BMI 25.7
--- NOTE | 2025-06-05 08:22 | AM.OFFWIN_ITS ---
Intake Vital Signs 06/05/25 08:21 Height 5 ft 3 in Weight 145 lb BMI 25.7 BP 115/73 Blood Pressure Location Lt brachial Position Sitting Respiration 16 Pulse 78 Pulse Source Pulse Oximeter Temp 98.2 F Temp Source Oral Pulse Oximetry (%) 97 Oxygen Delivery Method Room Air Intake Visit Reasons: EP-severe headaches, blurry vision Intake Note: Pt ambulated (I) gait steady to triage corner. Pt c/o right top of head pain with blurry vision x 2 weeks. Pt a/o x 3, no shortness of breath noted. Speaks in full sentences. Pt stated that he was seen in the ER 2 weeks ago for the same go some relief. Pt denied any nausea/vomiting/diarrhea. Lungs - cta. Heart sounds - regular. Pt stated that he has seen his eye doctor about 1 year ago. Skin pink warm and dry. PAs-C ([facility] [employer] [facility]) and Annelise ([employer]) aware. Pt is stable returned to the waiting room. Patient Tobacco Use Status: Never used Tobacco Code Clerk Required: No Allergies TUNA FISH Allergy (Unknown, Uncoded 06/05/25 08:22) UNKNOWN Medication List - Last Reconciled 06/05/25 by Isidoro Palmer MD albuterol sulfate 90 mcg/actuation (Ventolin HFA) 1 inh inhalation QID PRN 30 days celecoxib 200 mg PO BID 14 days [cervical soft collar As directed] citalopram 40 mg PO QAM hydroxyzine HCl 50 mg PO BID PRN metoclopramide HCl (Reglan) 10 mg PO Q6H PRN omeprazole 20 mg PO DAILY zolpidem 10 mg PO BEDTIME PRN HPI EP-severe headaches, blurry vision HPI Details History of Present Illness The patient is a 59-year-old male presenting with a persistent right-sided headache. Headache: - The patient reports a persistent right -sided headache that began approximately four weeks ago. - He describes the sensation as feeling like a swollen brain and reports the pain fluctuates in severity from a 3/10 to a 7/10 daily, but never fully resolves. - Associated symptoms include blurred vi puneet and a sensation of numbness on the affected side. - Due to concern for a stroke, the patie nt went to the [facility] emergency room two weeks ago, on May 02. - In the ER, he received IV fluids and I V medications, including Reglan, Benadryl, and Toradol. - Workup included a CT scan of the brain which showed no acute abnormalities, and an EKG which was normal. - Labs at the time showed a creatinine o f 1.44, thought to be related to dehydration, and a slightly elevated potassium. - He was discharged with a prescription for metoclopramide, which he reports did not provide much relief, and a recommendation to take Excedrin Migraine. - The patient denies a personal history of migraines. Asthma: - The patient reports that he has run ou t of his albuterol inhaler. Head Injury: - The patient reports a past head injury from falling off a 4-foot ladder approximately one year ago. Medical History: - Asthma - Head injury from a fall approximately one year ago. - Dehydration, treated at a recent ER vi sit. Medications: - Metoclopramide 10 mg (prescribed post- ER visit 14 tabs) - Albuterol inhaler (ran out) - Excedrin Migraine (rec in ER but not t aking ] Social History: - Weight loss of approximately 10 pounds over the summer.. - Denies use of illicit drugs, including marijuana. - Denies current alcohol consumption. Diagnostic Results: - CT scan of brain: Performed during an ER visit two weeks prior, revealed no acute problems. - EKG: Normal sinus rhythm with normal i ntervals and no ST segment elevation. - CBC: Normal. - Chemistry: Potassium was slightly high and creatinine was 1.44, suspected to be due to dehydration. Problem List - Migraine - Asthma Plan - The patient's headache is assessed as a migraine. - Reassurance was provided that the rece nt brain imaging was normal and did not show a serious underlying cause. - Will prescribe two medications for fady turpin: one for daily nighttime use and another to be taken once a day as needed for worsening headache. - A referral will be placed for a neurol ogy consultation. - A refill for the patient's albuterol i nhaler will be sent to the pharmacy. - No additional labs are needed at this time, given the recent workup in the emergency room. - The patient is scheduled for a follow- up appointment next Wednesday at 2:00 PM. Review of Systems - General: No fever no chills - Neurological: no dizziness - Ear nose throat: No sore throat no hearing difficulty no ear pain - Cardiovascular: No syncope, no chest pain, no palpitations - Gastrointestinal: No nausea vomiting or diarrhea Physical Exam General: No acute distress HEENT: GRACE, EOMI no photophobia Neck: Supple Respiratory system: Able to talk in full sentences, no audible wheeze Extremities: No new findings MOLDER INFLATED BALL: Alert awake oriented x3 motor intact non focal Skin: Normal turgor PFSH Medical History Premature ventricular complex Anxiety, generalized Major depression, recurrent GERD without esophagitis Surgical History Hx of colonoscopy Family History Father No problems noted. Mother No problems noted. Social History Housing: House Patient Tobacco Use Status: Never used Tobacco e-Cigarette/Vaping Use: Never Used service: No Current occupational status: retired Cognitive needs: No Hearing needs: No Vision needs: No Physical Exam Vital Signs: Last Vital Signs Temp 98.2 F 06/05/25 08:21 Pulse 78 06/05/25 08:21 Resp 16 06/05/25 08:21 BP 115/73 06/05/25 08:21 Pulse Ox 97 06/05/25 08:21 Oxygen Delivery Method Room Air 06/05/25 08:21 BMI result Body Mass Index 25.7 Assessment & Plan Assessment & Plan (1) Headache syndrome: Code(s): G44.89 - Other headache syndrome (2) Migraine with aura: Code(s): G43.109 - Migraine with aura, not intractable, without status migrainosus Qualifiers: Status migrainosus presence: without status migrainosus Intractability: not intractable Qualified Code(s): G43.109 - Migraine with aura, not intractable, without status migrainosus Plan Headache: - The patient reports a persistent right-sided headache that began approximately four weeks ago. - He describes the sensation as feeling like a swollen brain and reports the pain fluctuates in severity from a 3/10 to a 7/10 daily, but never fully resolves. - Associated symptoms include blurred vision and a sensation of numbness on the affected side. - Due to concern for a stroke, the patient went to the [facility] emergency room two weeks ago, on May 02. - In the ER, he received IV fluids and IV medications, including Reglan, Benadryl, and Toradol. - Workup included a CT scan of the brain which showed no acute abnormalities, and an EKG which was normal. - Labs at the time showed a creatinine of 1.44, thought to be related to dehydration, and a slightly elevated potassium. - He was discharged with a prescription for metoclopramide, which he reports did not provide much relief, and a recommendation to take Excedrin Migraine. - The patient denies a personal history of migraines. Asthma: - The patient reports that he has run out of his albuterol inhaler. Head Injury: - The patient reports a past head injury from falling off a 4-foot ladder approximately one year ago. Medical History: - Asthma - Head injury from a fall approximately one year ago. - Dehydration, treated at a recent ER visit. Medications: - Metoclopramide 10 mg (prescribed post-ER visit 14 tabs) - Albuterol inhaler (ran out) - Excedrin Migraine (rec in ER but not taking ] Social History: - Weight loss of approximately 10 pounds over the summer.. - Denies use of illicit drugs, including marijuana. - Denies current alcohol consumption. Diagnostic Results: - CT scan of brain: Performed during an ER visit two weeks prior, revealed no acute problems. - EKG: Normal sinus rhythm with normal intervals and no ST segment elevation. - CBC: Normal. - Chemistry: Potassium was slightly high and creatinine was 1.44, suspected to be due to dehydration. Problem List - Migraine - Asthma Plan - The patient's headache is assessed as a migraine. - Reassurance was provided that the recent brain imaging was normal and did not show a serious underlying cause. - Will prescribe two medications for migraine: one for daily nighttime use and another to be taken once a day as needed for worsening headache. - A referral will be placed for a neurology consultation. - A refill for the patient's albuterol inhaler will be sent to the pharmacy. - No additional labs are needed at this time, given the recent workup in the emergency room. - The patient is scheduled for a follow-up appointment next Wednesday at 2:00 PM. Orders: Referrals Neurology Referral G44.89 - Other headache syndrome Medications: New amitriptyline 25 mg PO BEDTIME 30 tabs 0RF 30 days sumatriptan succinate 50 mg PO .qd PRN 10 tabs 0RF migraine headache 10 days Refilled albuterol sulfate 90 mcg/actuation (Ventolin HFA) 1 inh inhalation QID PRN 6.7 grams 1RF shortness of breath or wheezing 30 days Coding Level of Care Code Est Pt Level 4 (97554) Diagnoses Headache syndrome G44.89 Migraine with aura and without status migrainosus, not intractable G43.109 Status migrainosus presence: without status migrainosus Intractability: not intractable
== END 2025-06-05 08:43 | disposition home or self-care (01) ==
PROVIDERS: PCP Internal Medicine; Visit Provider Internal Medicine
DX: G44.89 Other headache syndrome (principal); G43.109 Migraine with aura, not intractable, without status migrainosus

== ENCOUNTER → 2025-06-05 08:08 | Outpatient (BNVA) | payer OTHER, SELFPAY | PROVIDERS: PCP Internal Medicine; Visit Provider Internal Medicine | DX: G44.89 Other headache syndrome (principal); G43.109 Migraine with aura, not intractable, without status migrainosus | CPT/HCPCS: 99212 ==

== ENCOUNTER 2025-06-27 11:11 | Outpatient (AMB) | payer OTHER, SELFPAY ==
--- NOTE | 2025-06-27 11:13 | A.OFFPC_ITS ---
Vital Signs 06/27/25 11:15 Height 5 ft 3 in Weight 150 lb BMI 26.6 BP 132/76 Blood Pressure Location Lt brachial Position Sitting Pulse 78 Pulse Source Pulse Oximeter Pulse Oximetry (%) 97 Intake Visit Reasons: Annual PE Allergies TUNA FISH Allergy (Unknown, Uncoded 06/27/25 11:16) UNKNOWN Medication List - Last Reconciled 06/27/25 by Isidoro Palmer MD albuterol sulfate 90 mcg/actuation (Ventolin HFA) 1 inh inhalation QID PRN 30 days amitriptyline 25 mg PO BEDTIME 30 days celecoxib 200 mg PO BID 14 days [cervical soft collar As directed] citalopram 40 mg PO QAM hydroxyzine HCl 50 mg PO BID PRN metoclopramide HCl (Reglan) 10 mg PO Q6H PRN omeprazole 20 mg PO DAILY sumatriptan succinate 50 mg PO .qd PRN 10 days zolpidem 10 mg PO BEDTIME PRN Tobacco use date assessed: 06/27/25 Dental Screening Dental Screen Date: 06/27/25 Did you have a dental visit in the last 12 months?: Yes Did you have a dental problem in the last 6 months where you did not have access to dental care?: No Was dental information given to patient?: Patient has dentist HPI HPI Comments History of Present Illness Details History of Present Illness The patient is a 59-year-old individual presenting for a physical exam. Migraine Headache: - The patient has a history of migraine headaches, which have now completely resolved. - The patient was previously prescribed a preventative medication taken at night and an as-needed medication for acute treatment. - The patient has discontinued both medi cations since the headaches have stopped and is increasing water intake. Abnormal Kidney Function: - Lab work from April of this year rev ealed abnormal kidney function, with an elevated potassium level of 5.5 and a creatinine of 1.44. - The patient reports now drinking more water. Preventative Care: - The patient's last colonoscopy was mor e than two years ago at [facility], and the result was normal. - The patient does not recall the recomm ended follow-up interval. - The patient's last tetanus shot was in 2019 and is up to date. - The patient declined the influenza vac cine. Psychiatric History: - The patient reports suffering from dep ression and anxiety and finds that staying busy with odd jobs helps manage symptoms. - The patient is taking citalopram 40 mg as a mood stabilizer. Cutaneous and Subcutaneous Lesions: - The patient notes a new, benign-appear ing cyst on the forehead that the patient would like removed. - The patient also reports yellowish dis coloration and numbness at the tip of the right great toenail, with concern for a fungal infection. Gastrointestinal History: - The patient takes omeprazole for GERD and is established with gastroenterology. - The patient previously saw a gastroent erologist at [facility] for chest pain, which was determined to be a torn muscle. Social History: - The patient consumes one cup of coffee in the morning and denies alcohol use. - The patient is not currently employed but performs odd jobs to stay active, which helps with the patient's depression and anxiety. Health Maintenance - Last colonoscopy was over two years ag o and was normal; the patient will be asked to retrieve the report for follow-up scheduling. - The patient requested laboratory ciprianoe bárbara for diabetes. - Tetanus immunization is up to date, wi th the last shot received in 2019. - The patient declined the influenza vac cine. only med from PCP office is albuterol inhaler for seasonal asthma [facility] Medical History Premature ventricular complex Anxiety, generalized Major depression, recurrent GERD without esophagitis Surgical History Hx of colonoscopy Family History Father No problems noted. Mother No problems noted. Social History Housing: House Patient Tobacco Use Status: Never used Tobacco e-Cigarette/Vaping Use: Never Used service: No Current occupational status: retired Cognitive needs: No Hearing needs: No Vision needs: No Questionnaire PHQ-9 Over the last 2 weeks, how often have you been bothered by any of the following problems? 1. Little interest or pleasure in doing things: nearly every day 2. Feeling down, depressed, or hopeless: not at all 3. Trouble falling or staying asleep, or sleeping too much: not at all 4. Feeling tired or having little energy: not at all 5. Poor appetite or overeating: not at all 6. Feeling bad about yourself - or that you are a failure or have let yourself or your family down: not at all 7. Trouble concentrating on things, such as reading the newspaper or watching television: not at all 8. Moving or speaking so slowly that other people could have noticed. Or the opposite - being so fidgety or restless that you have been moving around a lot more than usual: not at all 9. Thoughts that you would be better off or of hurting yourself in some way: not at all Total score: 3 Depression Screening Interpretation: Negative Depression Screening Done: Yes 92533 - PHQ-9 Billing: Yes Source: Developed by Drs. Jony Mello, Janny Montana, Tai Patricia and colleagues, with an educational car from [employer]. Thrive Questionnaire Date Thrive assessed: 06/27/25 I am a: Patient What is your living situation today?: I have a steady place to live Within the past 12 months, did the food you bought not last and you didn't have the money to get more?: Sometimes True Within the past 12 months, did you worry whether your food would run out before you got money to buy more?: Sometimes True Do you have trouble paying for medicines?: Yes Do you have trouble getting transportation to medical appointments?: No Do you have trouble paying your heating and electricity bill?: Yes Do you have trouble taking care of your child, family member or friend?: No Do you have trouble with day-to-day activities such as bathing, preparing meals, shopping, managing finances, etc.?: No Are you currently unemployed and looking for a job?: Yes Are you interested in more education?: No Please select the resources that you would like help with: None Currently or been in a relationship where the following occur: I choose not to answer THRIVE Score: 3 AUDIT C Alcohol Use Questionnaire (AUDIT-C) 1. How often do you have a drink containing alcohol?: Never 3. How often do you have six or more drinks on one occasion?: Never Total Score: 0 Score Reviewed/Action Taken: Yes JUNIOR-7 AMB Questionnaire JUNIOR-7 Date JUNIOR - 7 assessed: 06/27/25 Feeling nervous, anxious, or on edge: 1 = Several days Not being able to stop or control worryin = Several days Worrying too much about different things: 1 = Several days Trouble relaxin = Several days Being so restless that it is hard to sit still: 1 = Several days Becoming easily annoyed or irritable: 1 = Several days Feeling afraid as if something awful might happen: 0 = Not at all Total JUNIOR-7 score (0-4 normal; 5-9 mild; 10-14 moderate; 15-21 severe): 6 Source: Developed by Drs. Jony Mello, Janny Montana, Tai Patricia and colleagues, with an educational car from [employer]. JUNIOR-7 Assessment Billing JUNIOR-7 Assessment Tool: JUNIOR-7 Assessment 80278 Review of Systems Narrative Review of Systems . - General: No fever no chills - Neurological: No headaches no dizziness - Ear nose throat: No sore throat no hearing difficulty no ear pain - Cardiovascular: No syncope, no chest pain, no palpitations - Gastrointestinal: No nausea vomiting or diarrhea - Endocrine: No polyuria polydipsia no heat intolerance - Genitourinary: No dysuria - Skin: No new complaints Physical exam (Primary Care) Vital Signs: Last Vital Signs Pulse 78 06/27/25 11:15 BP 132/76 06/27/25 11:15 Pulse Ox 97 06/27/25 11:15 BMI result Body Mass Index 26.6 Tobacco/Smoking Status: Tobacco use Status Tobacco use date assessed 06/27/25 06/27/25 11:18 Patient Tobacco Use Status Never used Tobacco 06/27/25 11:18 e-Cigarette/Vaping Use Never Used 06/27/25 11:18 PHQ-9: PHQ-9 Score PHQ-9: Total score 3 06/27/25 11:18 Depression Screening Interpretation: Negative Thrive Assessment: Date of Thrive Assessment Date Thrive assessed 06/27/25 06/27/25 11:18 Currently or been in a relationship where the following occur: I choose not to a nswer Narrative Diagnostic results - Labs (April): CBC showed normal hemoglobin. A metabolic panel showed an elevated potassium of 5.5 and creatinine of 1.44. Liver enzymes were stable. - Procedures: A colonoscopy done over two years ago was normal. Physical Exam General: Cooperative, healthy appearing, comfortable, no acute distress Orientation: Patient oriented x3 Head: Normal to inspection, soft systic lump forhead close to hair line left side Ears: Within normal limit visually Nose: Normal external nose present Face and sinus: Normal facial exam Eyes: Appearance normal, extraocular movement intact pupils reactive Neck: Normal visual inspection and supple Respiratory: Normal respiratory effort and able to speak in complete sentences. Clear to auscultation, no stridor Cardiovascular: S1 and S2 RRR GI: Normal to inspection. Soft to palpation and nontender Skin: Turgor normal, no acute findings, noted bump on skin, likely a benign cyst Neuro: Patient oriented x3, motor sensory intact, balance intact, tandem pass Extremities: Normal to inspection, noted yellowish discoloration on right big toe nail . Coding Level of Care Code Est Pt Level 3 (74584) Est Pt Prev Care 40-64y(85320) Diagnoses Encounter for general adult medical examination with abnormal findings Z00.01 Elevated creatine kinase R74.8 Serum potassium elevated E87.5 Benign skin cyst L72.9 Toenail deformity L60.8 Difficulty sleeping G47.9 Mild intermittent asthma without complication J45.20 Asthma complication type: uncomplicated Asthma severity: mild Migraine with aura and without status migrainosus, not intractable G43.109 Intractability: not intractable Status migrainosus presence: without status migrainosus Additional Codes JUNIOR-7 Assessment Billing - JUNIOR-7 Assessment Tool: JUNIOR-7 Assessment 28090 ([id number]) PHQ-9 - 14076 - PHQ-9 Billing: Yes ([id number]) Assessment & Plan Assessment & Plan (1) Encounter for general adult medical examination with abnormal findings: Code(s): Z00.01 - Encounter for general adult medical examination with abnormal findings Category: Medical (2) Elevated creatine kinase: Code(s): R74.8 - Abnormal levels of other serum enzymes Category: Medical (3) Serum potassium elevated: Code(s): E87.5 - Hyperkalemia Category: Medical (4) Benign skin cyst: Code(s): L72.9 - Follicular cyst of the skin and subcutaneous tissue, unspecified Category: Medical (5) Toenail deformity: Code(s): L60.8 - Other nail disorders Category: Medical (6) Difficulty sleeping: Code(s): G47.9 - Sleep disorder, unspecified Category: Medical (7) Asthma, intermittent: Code(s): J45.20 - Mild intermittent asthma, uncomplicated Category: Medical Qualifiers: Asthma complication type: uncomplicated Asthma severity: mild Qualified Code(s): J45.20 - Mild intermittent asthma, uncomplicated (8) Migraine with aura: Code(s): G43.109 - Migraine with aura, not intractable, without status migrainosus Category: Medical Qualifiers: Intractability: not intractable Status migrainosus presence: without status migrainosus Qualified Code(s): G43.109 - Migraine with aura, not intractable, without status migrainosus Plan Patient Instructions - Go for fasting blood work to recheck your kidney function and screen for diabetes. - Contact [facility] to get the report from your last colonoscopy and have them send it to our office. - We will make a referral for you to see a surgeon to have the small cyst on your forehead removed. - We will make a referral for you to see a stock receiver (foot doctor) to check the discolored nail on your right big toe. - You will be contacted about your blood test results once they are available. - Schedule your next physical exam in one year. Orders: Orders Complete Blood Count Auto Diff Today E87.5 - Hyperkalemia, G43.109 - Migraine with aura, not intractable, without status migrainosus, G47.9 - Sleep disorder, unspecified, J45.20 - Mild intermittent asthma, uncomplicated, R74.8 - Abnormal levels of other serum enzymes, Z00.01 - Encounter for general adult medical examination with abnormal findings Comprehensive [place]. Panel Fast Today E87.5 - Hyperkalemia, G43.109 - Migraine with aura, not intractable, without status migrainosus, G47.9 - Sleep disorder, unspecified, J45.20 - Mild intermittent asthma, uncomplicated, R74.8 - Abnormal levels of other serum enzymes, Z00.01 - Encounter for general adult medical examination with abnormal findings Lipid Panel Today E87.5 - Hyperkalemia, G43.109 - Migraine with aura, not intractable, without status migrainosus, G47.9 - Sleep disorder, unspecified, J45.20 - Mild intermittent asthma, uncomplicated, R74.8 - Abnormal levels of other serum enzymes, Z00.01 - Encounter for general adult medical examination with abnormal findings Vitamin D 25-OH (D2 and D3) Today E87.5 - Hyperkalemia, G43.109 - Migraine with aura, not intractable, without status migrainosus, G47.9 - Sleep disorder, unspecified, J45.20 - Mild intermittent asthma, uncomplicated, R74.8 - Abnormal levels of other serum enzymes, Z00.01 - Encounter for general adult medical examination with abnormal findings TSH reflex Free T4 Today E87.5 - Hyperkalemia, G43.109 - Migraine with aura, not intractable, without status migrainosus, G47.9 - Sleep disorder, unspecified, J45.20 - Mild intermittent asthma, uncomplicated, R74.8 - Abnormal levels of other serum enzymes, Z00.01 - Encounter for general adult medical examination with abnormal findings Referrals General Surgery Referral L72.9 - Follicular cyst of the skin and subcutaneous tissue, unspecified Podiatry Referral L60.8 - Other nail disorders
[2025-06-27 11:15] VITALS: BP 132/76; PULSE 78; O2SAT 97; BMI 26.6
== END 2025-06-27 11:39 | disposition home or self-care (01) ==
LOC: HO.HMCC 11:12
PROVIDERS: PCP Internal Medicine; Visit Provider Internal Medicine
DX: Z00.01 Encounter for general adult medical examination with abnormal findings (principal); R74.8 Abnormal levels of other serum enzymes; E87.5 Hyperkalemia; L72.9 Follicular cyst of the skin and subcutaneous tissue, unspecified; L60.8 Other nail disorders; G47.9 Sleep disorder, unspecified; J45.20 Mild intermittent asthma, uncomplicated; G43.109 Migraine with aura, not intractable, without status migrainosus

== ENCOUNTER → 2025-06-27 11:11 | Outpatient (BNVA) | payer OTHER, SELFPAY | PROVIDERS: PCP Internal Medicine; Visit Provider Internal Medicine | DX: Z00.01 Encounter for general adult medical examination with abnormal findings (principal); R74.8 Abnormal levels of other serum enzymes; E78.5 Hyperlipidemia, unspecified; L72.9 Follicular cyst of the skin and subcutaneous tissue, unspecified; L60.9 Nail disorder, unspecified; G47.9 Sleep disorder, unspecified; J45.20 Mild intermittent asthma, uncomplicated; G43.109 Migraine with aura, not intractable, without status migrainosus; Z13.31 Encounter for screening for depression; Z13.39 Encounter for screening examination for other mental health and behavioral disorders | CPT/HCPCS: 96127; 99396 ==

== ENCOUNTER 2025-06-29 09:59 | Outpatient (AMB) | payer OTHER, SELFPAY ==
--- NOTE | 2025-06-29 10:11 | MHC.OFFVIS ---
Vital Signs 06/29/25 10:17 Height 5 ft 4 in Weight 145 lb BMI 24.9 BP 134/74 Blood Pressure Location Lt brachial Position Sitting Respiration 16 Pulse 85 Pulse Source Pulse Oximeter Pulse Oximetry (%) 96 Intake Visit Reasons: Headache syndrome Director Of Anesthesia Services Required: No Allergies TUNA FISH Allergy (Unknown, Uncoded 06/29/25 10:18) UNKNOWN HPI Comments Details: Rg is a 59-year-old male patient with a past medical history of asthma who presents for headache evaluation. He was seen by primary care on 06/05/2025 reporting severe headaches and blurry vision. He did have recent brain imaging including a CT scan of the brain which has been normal. he was recommended trial of amitriptyline 25 mg nightly and a referral was placed to neurology for evaluation and management. The patient tells me today, that he has not been one to have headaches in the past. About a month and a half ago had pain to the right parietal area 16/10 in severity including tenderness to the scalp area. The pain was not accompanied by any light or sound sensitivity or any nausea. He did have some blurred vision to both eyes during the headache. he was started on amitriptyline 25 mg nightly and had relief of his pain. His pain in general resolved a proximally 1 week from today and he has stopped his amitriptyline around this same time. His pain has not returned. Headache characteristics: Time of onset: 1.5 months ago Location: right parietal Radiation: no Positional component: no Character: sharp and aching Severity: 6/10 Duration:Daily and constant for about a month and a half Frequency:Daily and constant for about a month and a half Acute aggravating factors:None Acute relieving factors:None Associated symptoms:Blurred vision Aura:No Other related background information: Sleep:Takes ambien as needed but overall has been sleeping generally well with feeling rested in the morning Stressors:Reports some general anxiety and can be stressed at baseline Hydration:Has been better but had a period of dehydration Caffeine intake:Daily 1 cup coffee in the morning Alcohol intake:None Substance use:None Tobacco use:None Last eye exam:About 1 year ago Last dental visit:Manuela the last year History of head injury: In the past has had some mild concussions Past medication trials: Amitriptyline 25mg nightly- worked well Prior workup: 05/02/2025 FINDINGS: There is no acute ischemic change. There is no intracranial hemorrhage. There is no mass-effect or midline shift. Basal cisterns and ventricles are within normal limits for age/cerebral volume. Orbits are symmetrical and unremarkable. Small mucous retention cyst is present in the right maxillary sinus, lateral wall toward the floor. There are no bony abnormalities. CT/CT head/brain wo IV con IMPRESSION: No acute intracranial abnormality. [facility] Medical History Premature ventricular complex Anxiety, generalized Major depression, recurrent GERD without esophagitis Surgical History Hx of colonoscopy Family History Father No problems noted. Mother No problems noted. Social History Housing: House Patient Tobacco Use Status: Never used Tobacco e-Cigarette/Vaping Use: Never Used service: No Current occupational status: retired Cognitive needs: No Hearing needs: No Vision needs: No Review of Systems Const All systems reviewed & are unremarkable except as noted in HPI and below Physical Exam Vital Signs: Last Vital Signs Pulse 85 06/29/25 10:17 Resp 16 06/29/25 10:17 BP 134/74 06/29/25 10:17 Pulse Ox 96 06/29/25 10:17 BMI result Body Mass Index 24.9 Const General: cooperative, healthy appearing, comfortable and no acute distress Nutritional Appearance: well nourished Orientation/consciousness: patient oriented x3 Limitations: no limitations HEENT Head: Yes normal to inspection and Yes normocephalic Eyes General: appearance normal, both eyes and all related structures Visual Rebollar: normal visual rebollar by confrontation Alignment and Position: alignment normal Periorbital: periorbital findings normal Eyelids: Yes eyelids normal Conjunctivae: conjunctivae normal Sclerae: sclerae normal Direct Ophthalmoscopy: normal light reflex Neck Neck: Yes normal visual inspection and Yes full ROM General: Yes no CVA tenderness Back/Spine/Pelvis Back: no CVA tenderness Cervical Spine: normal cervical lordosis Thoracic/Lumbar Spine: thoracic and lumbar spine normal to inspection Neuro General: patient oriented x3 and deep tendon reflexes 2+ bilaterally Cranial nerves: Yes CN's II-XII intact bilaterally and Yes Facial sensation intact/muscles of mastication intact Cognition (Neuro): normal cognition Gait exam (Neuro): Normal gait present Motor exam (neuro): 5/5 motor strength present throughout and no tremor noted Sensory Exam: double simultaneous stimulation for sensation normal Romberg Test: Negative Pupils: Normal pupillary reactivity/response: bilateral Psych Appearance: grossly normal Mental Status: mental status grossly normal Speech and movement: Normal speech and movement present and Clear speech present Affect: normal affect Attitude: cooperative Thought process: Normal thought process present Thought content: Normal thought content present Insight: Good insight present (Psych) Judgement: Good judgement present (Psych) Assessment & Plan Assessment & Plan (1) Headache syndrome: Code(s): G44.89 - Other headache syndrome Category: Medical Plan Rg is a 59-year-old male patient with a past medical history of asthma who presents for headache evaluation. he had a new onset headache to the right parietal area lasting a proximally 1-1/2 months but responding well to amitriptyline 25 mg nightly and resolving on this medication. He has since discontinued the amitriptyline and has not had any return of his headaches. His imaging was reassuring. he does feel as though his headaches were related to dehydration and has since increased his fluid intake. If his headaches return I have encouraged him to come back to the office for further evaluation at which time we would likely restart the amitriptyline. In the meantime, I have encouraged him to remain well hydrated. Coding Level of Care Code New Pt Level 3 (02562) Diagnoses Headache syndrome G44.89
[2025-06-29 10:17] VITALS: BP 134/74; PULSE 85; RESP 16; O2SAT 96; BMI 24.9
== END 2025-06-29 11:38 | disposition home or self-care (01) ==
LOC: HO.HSM 10:00
PROVIDERS: PCP Internal Medicine; Visit Provider Nurse Practitioner
DX: G44.89 Other headache syndrome (principal)
CPT/HCPCS: 99203

== ENCOUNTER → 2025-06-29 09:59 | Outpatient (BNVA) | payer OTHER, SELFPAY | PROVIDERS: PCP Internal Medicine; Visit Provider Nurse Practitioner | DX: G44.89 Other headache syndrome (principal) | CPT/HCPCS: 99202 ==

== ENCOUNTER 2025-07-05 10:49 | Outpatient (AMB) | payer OTHER, SELFPAY ==
[2025-07-05 11:03] VITALS: BP 132/63; PULSE 65; BMI 26.3
--- NOTE | 2025-07-05 11:03 | A.OFFVIS_ITS ---
Vital Signs 3 07/05/25 11:03 Height 5 ft 4 in Weight 153 lb BMI 26.3 BP 132/63 Blood Pressure Location Rt brachial Position Sitting Pulse 65 Intake Visit Reasons: Follicular cyst of the skin and subcutaneous tissu Intake Note: Patient referred by PCP Dr. Palmer for assessment of follicular cyst on forehead. First noticed 1.5 yrs ago. Patient c/o: enlarging, mass is mobile. Denies pain or discomfort. No hx of skin CA. Quitline Counselor Required: No Accompanied by: Self / Same As Patient Allergies TUNA FISH Allergy (Unknown, Uncoded 07/05/25 11:13) UNKNOWN Medication List - Last Reconciled 07/05/25 by Deniz Marie MD albuterol sulfate 90 mcg/actuation (Ventolin HFA) 1 inh inhalation QID PRN 30 days amitriptyline 25 mg PO BEDTIME 30 days citalopram 40 mg PO QAM hydroxyzine HCl 50 mg PO BID PRN zolpidem 10 mg PO BEDTIME PRN HPI Comments Details: Patient reports long history of a cystic mass at the top of his forehead at the hairline. He denies any trauma or instrumentation to the region. He reports that he finds it bothersome and desires removal. [facility] Medical History Premature ventricular complex Anxiety, generalized Major depression, recurrent GERD without esophagitis Surgical History Hx of colonoscopy Family History Father No problems noted. Mother No problems noted. Social History Housing: House Patient Tobacco Use Status: Never used Tobacco e-Cigarette/Vaping Use: Never Used service: No Current occupational status: retired Cognitive needs: No Hearing needs: No Vision needs: No Review of Systems Const All systems reviewed & are unremarkable except as noted in HPI and below Physical Exam Vital Signs: Last Vital Signs Pulse 65 07/05/25 11:03 BP 132/63 07/05/25 11:03 BMI result Body Mass Index 26.3 HEENT Head images: 2 1. 2 cm soft mobile mass consistent with pilar cyst. Eyes Pupils: Equal, round and reactive pupils present EOM: EOMs intact bilaterally Neck Neck: Yes normal visual inspection Chest Chest palpation & inspection: normal inspection of the chest Resp Effort & Inspection: normal respiratory effort and able to speak in complete sentences Cardio Rate: regular rate Rhythm: regular rhythm GI Inspection: Yes normal to inspection General: Yes no CVA tenderness Back/Spine/Pelvis Back: no CVA tenderness Thoracic/Lumbar Spine: thoracic and lumbar spine normal to inspection Neuro Cranial nerves: Yes Equal, round and reactive pupils present Assessment & Plan Assessment & Plan (1) 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 I reviewed with him the nature of such a procedure as well as the risks that are involved. These include but are not limited to the risk of bleeding the risks of infection the risk of scarring the risk of recurrence the risk of chronic pain were all discussed with him in detail. He told me that he understood. He told me that he understood and accepted the risks of excisional biopsy unless he indicated that despite the risks he still wished to proceed with surgery. Orders: Referrals 2 General Surgery Procedure Notification L72.11 - Pilar cyst Coding Level of Care Code New Pt Level 3 (61769) Diagnoses Pilar cyst L72.11 Time Spent (min) 30 Comment Patient visit, record review and coordination of care time
== END 2025-07-05 11:24 | disposition home or self-care (01) ==
LOC: HO.HGS 10:50
PROVIDERS: PCP Internal Medicine; Visit Provider Surgery
DX: L72.11 Pilar cyst (principal)
CPT/HCPCS: 99203

== ENCOUNTER → 2025-07-05 10:49 | Outpatient (BNVA) | payer OTHER, SELFPAY | PROVIDERS: PCP Internal Medicine; Visit Provider Surgery | DX: L72.11 Pilar cyst (principal) | CPT/HCPCS: 99202 ==

== ENCOUNTER 2025-07-17 08:20 | Outpatient (REF) | payer OTHER, SELFPAY ==
[2025-07-17 10:41] LABS: MANUAL DIFF FLAG NO
[2025-07-17 10:51] LABS: Hematocrit 47.2 % (42.0-52.0); Hemoglobin 15.2 g/dl (14.0-18.0); Imm Gran Abs Auto 0.02 X10*3/uL (0.00-0.03); Imm Gran Pct Auto 0.3 % (0.0-0.4); Lymphocytes Absolute Auto 1.1 X10*3/uL (1.2-4.9); Mean Corpuscular HGB Conc 32.2 g/dl (31.0-36.0); Mean Corpuscular Hemoglobin 31.8 pg (27.0-33.0); Mean Corpuscular Volume 98.7 fL (80.0-98.0); NRBC Abs Auto 0.000 X10*3/uL (0.0-0.012); NRBC Pct Auto 0.0 /100WBC (0.0-0.2); Platelet Count 294 X10*3/uL (160-400); Red Blood Count 4.78 X10*6/uL (4.60-5.80); White Blood Count 6.3 X10*3/uL (4.8-10.8)
[2025-07-17 11:14] LABS: Alanine Aminotransferase 23 U/L (0-40); Albumin Level 4.4 g/dL (3.5-5.0); Alkaline Phosphatase 73 U/L (39-117); Anion Gap 10 (12-20); Aspartate Amino Transferase 25 U/L (5-37); Blood Urea Nitrogen 12 mg/dL (9-16); Calcium 9.5 mg/dL (8.4-10.2); Carbon Dioxide 31 mmol/L (22-29); Chloride 109 mmol/L (96-108); Cholesterol 156 mg/dL (<200); Estimated Glomerular Filt Rate > 60; HDL Cholesterol 63 mg/dL (>40); Potassium 4.9 mmol/L (3.3-5.1); Sodium 145 mmol/L (135-145); Total Protein 6.9 g/dL (6.5-8.0); Triglycerides 57 mg/dL (<150)
== END 2025-07-17 08:21 | disposition home or self-care (01) ==
LOC: HO.HMGCLDS 08:20
PROVIDERS: PCP Internal Medicine; Visit Provider Internal Medicine
DX: Z00.01 Encounter for general adult medical examination with abnormal findings (principal); Z13.21 Encounter for screening for nutritional disorder; G47.9 Sleep disorder, unspecified; J45.20 Mild intermittent asthma, uncomplicated; G43.109 Migraine with aura, not intractable, without status migrainosus; R74.8 Abnormal levels of other serum enzymes; E87.5 Hyperkalemia
CPT/HCPCS: 36415; 80053; 80061; 82306; 84443; 85025